=== PATIENT | female | born 1990 | race Caucasian/White ===

== ENCOUNTER → 2019-03-09 12:44 | Outpatient (BNVA) | payer MEDICAID, SELFPAY | PROVIDERS: Visit Provider Nurse Practitioner | DX: F73 Profound intellectual disabilities (principal) | CPT/HCPCS: 99213 ==

== ENCOUNTER 2019-04-22 12:04 | Outpatient (CLI) | payer MEDICAID, SELFPAY ==
--- NOTE | 2019-04-22 12:35 | XR_ITS ---
WS: [id number] XR knee RT 3V* [id number] REASON FOR EXAM: PAIN SWELLING OF R KNEE FINDINGS: Loss of the meniscal space particularly the lateral meniscus with eburnation. There is soft tissue swelling over the lateral knee joint. The patella tibial space is slightly shortened are narr owed. The patellofemoral articulations normal. XR/XR knee RT 3V* [id number] IMPRESSION: Degenerated lateral meniscal disease. Patella vergae Soft tissue swelling particularly over the lateral knee.
--- NOTE | 2019-04-22 12:35 | XR_ITS ---
WS: [id number] XR shoulder LT min 2V* [id number] REASON FOR EXAM: PAIN SWELLING OF L SHOULDER FINDINGS: Hypertrophy of the acromioclavicular joint with elevation of the joint present. There is al so evidence of elevation of the humerus in the glenoid fossa consistent with grade 3 impingement jerez ges. The clavicle scapula show no fractures. 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 Elevation of the acromioclavicular joint with degenerated changes.
--- NOTE | 2019-04-22 12:35 | XR_ITS ---
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 XR/XR hip RT 1V wo/w pel [id number] IMPRESSION: Superior dislocation of the right hip.
== END 2019-04-22 12:05 | disposition home or self-care (01) ==
LOC: RAD 12:10
PROVIDERS: PCP Registered Nurse; Visit Provider Registered Nurse
DX: M25.561 Pain in right knee (principal); M19.012 Primary osteoarthritis, left shoulder; M17.11 Unilateral primary osteoarthritis, right knee; S83.281A Other tear of lateral meniscus, current injury, right knee, initial encounter; X58.XXXA Exposure to other specified factors, initial encounter; S73.004A Unspecified dislocation of right hip, initial encounter
CPT/HCPCS: 73030; 73501; 73562

== ENCOUNTER → 2019-09-07 07:37 | Outpatient (BNVA) | payer MEDICAID, SELFPAY | PROVIDERS: PCP Registered Nurse; Visit Provider Nurse Practitioner | DX: F73 Profound intellectual disabilities (principal) | CPT/HCPCS: 99214 ==

== ENCOUNTER → 2019-12-02 07:53 | Outpatient (BNVA) | payer MEDICAID, SELFPAY | PROVIDERS: PCP Registered Nurse; Visit Provider Nurse Practitioner | DX: F73 Profound intellectual disabilities (principal) | CPT/HCPCS: 99213 ==

== ENCOUNTER → 2020-04-27 07:34 | Outpatient (BNVA) | payer MEDICAID, SELFPAY | PROVIDERS: PCP Registered Nurse; Visit Provider Nurse Practitioner | DX: F73 Profound intellectual disabilities (principal); G47.00 Insomnia, unspecified | CPT/HCPCS: 99214 ==

== ENCOUNTER → 2020-10-19 09:15 | Outpatient (BNVA) | payer MEDICAID, SELFPAY | PROVIDERS: PCP Registered Nurse; Visit Provider Nurse Practitioner | DX: F73 Profound intellectual disabilities (principal); G47.00 Insomnia, unspecified | CPT/HCPCS: 99214 ==

== ENCOUNTER → 2021-04-12 07:26 | Outpatient (BNVA) | payer MEDICAID, SELFPAY | PROVIDERS: PCP Registered Nurse; Visit Provider Nurse Practitioner | DX: F73 Profound intellectual disabilities (principal); G47.00 Insomnia, unspecified | CPT/HCPCS: 99214 ==

== ENCOUNTER 2021-04-19 11:55 | Inpatient (IN) | payer MEDICARE, MEDICAID, SELFPAY ==
[2021-04-19 12:03] VITALS: PULSE 133; RESP 16; O2SAT 93; BMI 25.9
[2021-04-19 12:46] VITALS: PULSE 133; RESP 18; O2SAT 96
[2021-04-19 13:04] LABS: Basophils % 0.3 %; Eosinophils % 0.1 %; Hematocrit 39.8 % (37.0-47.0); Hemoglobin 11.2 g/dL (11.5-15.3); Lymphocytes # 0.9 10^3/uL (0.8-4.8); Lymphocytes % 7.6 %; Mean Corpuscular HGB Conc 28.1 g/dL (30.0-36.0); Mean Corpuscular Hemoglobin 27.3 pg (28.0-34.0); Mean Corpuscular Volume 97.1 fl (81-99); Mean Platelet Volume 11.2 fL (7.4-10.4); Monocytes % 8.2 %; Neutrophils # 10.06 10^3/uL (1.8-7.7); Neutrophils % 83.2 %; Nucleated Red Blood Cells % 0 %; Platelet Count 282 10^3/cmm (130-400); Red Cell Distribution Width 14.4 % (12.1-15.1); White Blood Count 12.1 10^3/uL (4.0-10.0)
--- NOTE | 2021-04-19 13:10 | ED_ITS ---
Documented by User: ARNULFO Driscoll 04/19/21 17:20 HPI - General Adult General: Chief complaint: Nausea/Vomiting/Diarrhea Stated complaint: Urgent Care sent for in need of Fluids Time Seen by Provider: 04/19/21 12:57 History of Present Illness: Patient is a 30-year-old female who comes to the ED with nausea, vomiting and fever. 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 She is unable to talk or ambulate. Patient uses wheelchair to get around. Patient's guardians are present and providing history. Patient was first seen at urgent care and then sent over here to the ED for further evaluation. She had a temperature of 100.4 while at urgent care. They said approximately 2 weeks ago she started developing on and off fevers. Approxima tely 1 week ago patient started having decreased oral intake. Patient has a soft liquid diet at baseline. She has not been taking any real food or fluids and and all over the past couple days. She had one episode of emesis yesterday. They report decreased bladder and bowel output since she is having decreased oral intake. Guardians report that she has been sleeping most of the day for the past couple days Associated symptoms: Reports nausea and vomiting; Deny chest pain, dyspnea, rash or palpitations Review of Systems Const: Reports: change in appetite (decreased), fatigue and change in sleep pattern (Sleeping most of the day.); Denies: fever(s) or chills Eyes: Denies: change in vision or eye discomfort ENMT: Denies: throat pain, odynophagia, nasal discharge or nasal congestion Card: Denies: chest pain, palpitations, edema, swelling of feet/ankles, dyspnea on exertion or orthopnea Resp: Denies: dyspnea, productive cough or non-productive cough GI: Reports: nausea, vomiting and change in bowel habits (Decreased output); Denies: abdominal pain, diarrhea, constipation or hematochezia : Reports: oliguria; Denies: flank pain, dysuria or hematuria Musc: Denies: neck pain, back pain or extremity swelling Skin/Breast: Denies: rash or new lesions [facility] ED PFSH: Medical History Insomnia Profound intellectual disabilities Social History Smoking and tobacco status: never smoked Physical Exam Const: EXAM LIMITATIONS: altered mental status (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 HENMT: COMMON NORMALS: normocephalic HEAD & SCALP: normocephalic MOUTH: moist mucous membranes abnormal TEETH & GINGIVA: Yes poor dentition THROAT: posterior oropharynx normal and uvula midline Neck/C-Spine: COMMON NORMALS: supple GENERAL: Yes normal visual inspection Resp: COMMON NORMALS: normal respiratory effort, No retractions, No use of accessory muscles and clear to auscultation bilaterally AUSCULTATION: clear to auscultation bilaterally Cardio: COMMON NORMALS: regular rate, regular rhythm, S1 normal heart sound present, S2 normal heart sound present, No gallops present (Cardio), No clicks present (Cardio), No murmurs present (Cardio) and Peripheral pulses 2+ throughout RATE: regular rate RHYTHM: regular rhythm HEART SOUNDS: S1 normal heart sound present and S2 normal heart sound present PERIPHERAL PULSES: Peripheral pulses 2+ throughout GI: COMMON NORMALS: Normal to inspection, nondistended, normoactive bowel sounds present, Soft to palpation, non-tender and no masses PALPATION: Yes Soft to palpation : COMMON NORMALS: Yes no CVA tenderness BLADDER/KIDNEY EXAM: Yes no CVA tenderness Back/Pelvis: COMMON NORMALS: no CVA tenderness Course Vital Signs: Vital signs: Vital Signs Temperature 99.1 F 04/20/21 08:00 Pulse Rate 97 04/20/21 08:00 Respiratory Rate 18 04/20/21 08:00 Blood Pressure 110/58 04/20/21 08:00 Pulse Oximetry 97 04/20/21 08:00 [facility] - General Adult Medical Decision Making Patient is a 30-year-old female comes to the ED for dehydration. Patient has not been eating or drinking much of anything over the past week. clinically, she appears very dehydrated cachetic and pail. Na-156 and Cr 1.3. pt care was transferred over to Dr. saxena due to possible admission of pt needed. Lab Data I reviewed the patient's lab results. : 04/20/21 04:55 04/20/21 04:55 Radiology Impressions Chest X-Ray 04/19/21 13:16 IMPRESSION: Normal chest. No acute pulmonary infiltrates. Laboratory Results WBC 12.1 10^3/uL (4.0-10.0) H 04/19/21 12:55 RBC 4.10 10^6/uL (4.1-5.3) 04/19/21 12:55 Hgb 11.2 g/dL (11.5-15.3) L 04/19/21 12:55 Hct 39.8 % (37.0-47.0) 04/19/21 12:55 MCV 97.1 fl (81-99) 04/19/21 12:55 MCH 27.3 pg (28.0-34.0) L 04/19/21 12:55 MCHC 28.1 g/dL (30.0-36.0) L 04/19/21 12:55 RDW 14.4 % (12.1-15.1) 04/19/21 12:55 Plt Count 282 10^3/cmm (130-400) 04/19/21 12:55 MPV 11.2 fL (7.4-10.4) H 04/19/21 12:55 Neut % (Auto) 83.2 % 04/19/21 12:55 Lymph % (Auto) 7.6 % 04/19/21 12:55 [place] % (Auto) 8.2 % 04/19/21 12:55 Eos % (Auto) 0.1 % 04/19/21 12:55 Baso % (Auto) 0.3 % 04/19/21 12:55 Neut # (Auto) 10.06 10^3/uL (1.8-7.7) H 04/19/21 12:55 Lymph # (Auto) 0.9 10^3/uL (0.8-4.8) 04/19/21 12:55 [place] # (Auto) 1.0 10^3/uL (0.2-0.9) H 04/19/21 12:55 Eos # (Auto) 0.0 10^3/uL (0.0-0.8) 04/19/21 12:55 Baso # (Auto) 0.0 10^3/uL (0.0-0.1) 04/19/21 12:55 Nucleated RBC % (auto) 0 % 02/16/22 12:55 Nucleated RBCs # 0.0 /100WBC 04/19/21 12:55 Sodium 156 mmol/L (136-145) H 04/19/21 12:55 Potassium 4.4 mmol/L (3.5-5.1) 04/19/21 12:55 Chloride 115 mmol/L (98-107) H 04/19/21 12:55 Carbon Dioxide 28 mmol/L (22-29) 04/19/21 12:55 Anion Gap 17.4 (5-19) 04/19/21 12:55 BUN 47 mg/dL (6-20) H 04/19/21 12:55 Creatinine 1.3 mg/dL (0.5-0.9) H 04/19/21 12:55 GFR Calculation 47.5 mL/min (90-130) L 04/19/21 12:55 Glucose 160 mg/dL (65-115) H 04/19/21 12:55 Calculated Osmolality 338 mOsm/kg (285-295) H 04/19/21 12:55 Lactic Acid 2.1 mmol/L (0.5-2.2) 04/19/21 13:41 Lactic Acid (Sepsis) 2.7 mmol/L (0.5-2.2) H 04/19/21 17:12 Calcium 9.6 mg/dL (8.5-10.5) 04/19/21 12:55 Total Bilirubin 0.3 mg/dL (0.15-1.2) 04/19/21 12:55 AST 66 U/L (0-32) H 04/19/21 12:55 ALT 61 U/L (0-33) H 04/19/21 12:55 Alkaline Phosphatase 146 IU/L (35-105) H 04/19/21 12:55 Total Protein 8.9 g/dL (6.6-8.7) H 04/19/21 12:55 Albumin 3.7 g/dL (3.5-5.2) 04/19/21 12:55 Globulin 5.2 g/dL (1.3-4.6) H 04/19/21 12:55 Lipase 55 U/L (13-60) 04/19/21 12:55 Procalcitonin 4.80 ng/mL (0-0.5) H 04/19/21 12:55 Coronavirus 229E (PCR) Not detected (NOT DETECT) 04/19/21 17:07 Influenza Type A Ag Cancelled 04/19/21 17:07 Influenza Type B Ag Cancelled 04/19/21 17:07 SARS-CoV-2 (PCR) Not detected (NOT DETECT) 04/19/21 17:07 Discharge Plan Discharge Patient Disposition: Admitted As Inpatient Admit Provider: Romeo Garza Clinical Impression: Sepsis, Severe dehydration, Hypernatremia, SHEKHAR (acute kidney injury), Profound intellectual disabilities Condition: Stable Coding Level of Care Code ED Evaluator Transfer Students for Chg Fwd Exam Detailed Documented by User: Jovani Saxena DO 04/20/21 11:27 HPI - General Adult General: Chief complaint: Nausea/Vomiting/Diarrhea Stated complaint: Urgent Care sent for in need of Fluids Time Seen by Provider: 04/19/21 12:57 History of Present Illness: Patient is a 30-year-old female who comes to the ED with nausea, vomiting and fever. 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 She is unable to talk or ambulate. Patient uses wheelchair to get around. Patient's guardians are present and providing history. Patient was first seen at urgent care and then sent over here to the ED for further evaluation. She had a temperature of 100.4 while at urgent care. They said approximately 2 weeks ago she started developing on and off fevers. Approximately 1 week ago patient started having decreased oral intake. Patient has a soft liquid diet at baseline. She has not been taking any real food or fluids and and all over the past couple days. She had one episode of emesis yesterday. They report decreased bladder and bowel output since she is having decreased oral intake. Guardians report that she has been sleeping most of the day for the past couple days 30-year-old female initially seen by ARNULFO. Has not been eating or drinking well has had a fever at home and has been tachycardic. 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 She usually eats and drinks well in room but has not been taking any consistent oral intake. Mother has not noticed anything that seems to make it better or worse she has had a little bit of a cough. Onset (ago): day(s) Review of Systems General: Reports: ROS unobtainable due to medical condition, ROS unobtainable due to mental status and Other (Review of systems obtained by PA reviewed with pts mother) PFSH ED PFSH: Medical History Insomnia Profound intellectual disabilities Social History Smoking and tobacco status: never smoked Physical Exam HENMT: COMMON NORMALS: normocephalic, atraumatic and hearing grossly normal bilaterally HEAD & SCALP: normocephalic and atraumatic OTHER: Oral mucosa dry and crusted Eye: COMMON NORMALS: Equal, round and reactive pupils present, EOMs intact bilaterally, conjunctivae normal and no scleral icterus CONJUNCTIVA: Yes conjunctivae normal PUPIL: Yes Equal, round and reactive pupils present Neck/C-Spine: COMMON NORMALS: no JVD Resp: COMMON NORMALS: normal respiratory effort, No retractions, No use of accessory muscles and clear to auscultation bilaterally AUSCULTATION: clear to auscultation bilaterally Cardio: COMMON NORMALS: no JVD, regular rate, regular rhythm and No murmurs present (Cardio) RATE: regular rate RHYTHM: regular rhythm GI: COMMON NORMALS: Soft to palpation and No hepatosplenomegaly present AUSCULTATION: Yes normoactive bowel sounds PALPATION: Yes Soft to palpation, No Tenderness to palpation present (GI), No Guarding due to palpation present (GI) and Yes No hepatosplenomegaly present Extremity: COMMON NORMALS: normal to inspection, capillary refill normal, no clubbing, cyanosis or edema, no calf tenderness and no pedal edema Course Vital Signs: Vital signs: Vital Signs Temperature 99.1 F 04/20/21 08:00 Pulse Rate 97 04/20/21 08:00 Respiratory Rate 18 04/20/21 08:00 Blood Pressure 110/58 04/20/21 08:00 Pulse Oximetry 97 04/20/21 08:00 MDM - General Adult Medical Decision Making Patient is a 30-year-old female comes to the ED for dehydration. Patient has not been eating or drinking much of anything over the past week. clinically, she appears very dehydrated cachetic and pail. Na-156 and Cr 1.3. pt care was transferred over to Dr. saxena due to possible admission of pt needed. Patient hyponatremic and dehydrated with elevated procalcitonin we are waiting on a urine discussed with hospitalist empiric antibiotics started. Medical Records I reviewed the patient's medical records. Lab Data : 04/20/21 04:55 04/20/21 04:55 Radiology Impressions Chest X-Ray 04/19/21 13:16 IMPRESSION: Normal chest. No acute pulmonary infiltrates. Laboratory Results WBC 12.1 10^3/uL (4.0-10.0) H 04/19/21 12:55 RBC 4.10 10^6/uL (4.1-5.3) 04/19/21 12:55 Hgb 11.2 g/dL (11.5-15.3) L 04/19/21 12:55 Hct 39.8 % (37.0-47.0) 04/19/21 12:55 MCV 97.1 fl (81-99) 04/19/21 12:55 MCH 27.3 pg (28.0-34.0) L 04/19/21 12:55 MCHC 28.1 g/dL (30.0-36.0) L 04/19/21 12:55 RDW 14.4 % (12.1-15.1) 04/19/21 12:55 Plt Count 282 10^3/cmm (130-400) 04/19/21 12:55 MPV 11.2 fL (7.4-10.4) H 04/19/21 12:55 Neut % (Auto) 83.2 % 04/19/21 12:55 Lymph % (Auto) 7.6 % 04/19/21 12:55 [place] % (Auto) 8.2 % 04/19/21 12:55 Eos % (Auto) 0.1 % 04/19/21 12:55 Baso % (Auto) 0.3 % 04/19/21 12:55 Neut # (Auto) 10.06 10^3/uL (1.8-7.7) H 04/19/21 12:55 Lymph # (Auto) 0.9 10^3/uL (0.8-4.8) 04/19/21 12:55 [place] # (Auto) 1.0 10^3/uL (0.2-0.9) H 04/19/21 12:55 Eos # (Auto) 0.0 10^3/uL (0.0-0.8) 04/19/21 12:55 Baso # (Auto) 0.0 10^3/uL (0.0-0.1) 04/19/21 12:55 Nucleated RBC % (auto) 0 % 04/19/21 12:55 Nucleated RBCs # 0.0 /100WBC 04/19/21 12:55 Sodium 156 mmol/L (136-145) H 04/19/21 12:55 Potassium 4.4 mmol/L (3.5-5.1) 04/19/21 12:55 Chloride 115 mmol/L (98-107) H 04/19/21 12:55 Carbon Dioxide 28 mmol/L (22-29) 04/19/21 12:55 Anion Gap 17.4 (5-19) 04/19/21 12:55 BUN 47 mg/dL (6-20) H 04/19/21 12:55 Creatinine 1.3 mg/dL (0.5-0.9) H 04/19/21 12:55 GFR Calculation 47.5 mL/min (90-130) L 04/19/21 12:55 Glucose 160 mg/dL (65-115) H 04/19/21 12:55 Calculated Osmolality 338 mOsm/kg (285-295) H 04/19/21 12:55 Lactic Acid 2.1 mmol/L (0.5-2.2) 04/19/21 13:41 Lactic Acid (Sepsis) 2.7 mmol/L (0.5-2.2) H 04/19/21 17:12 Calcium 9.6 mg/dL (8.5-10.5) 04/19/21 12:55 Total Bilirubin 0.3 mg/dL (0.15-1.2) 04/19/21 12:55 AST 66 U/L (0-32) H 04/19/21 12:55 ALT 61 U/L (0-33) H 04/19/21 12:55 Alkaline Phosphatase 146 IU/L (35-105) H 04/19/21 12:55 Total Protein 8.9 g/dL (6.6-8.7) H 04/19/21 12:55 Albumin 3.7 g/dL (3.5-5.2) 04/19/21 12:55 Globulin 5.2 g/dL (1.3-4.6) H 04/19/21 12:55 Lipase 55 U/L (13-60) 04/19/21 12:55 Procalcitonin 4.80 ng/mL (0-0.5) H 04/19/21 12:55 Coronavirus 229E (PCR) Not detected (NOT DETECT) 04/19/21 17:07 Influenza Type A Ag Cancelled 04/19/21 17:07 Influenza Type B Ag Cancelled 04/19/21 17:07 SARS-CoV-2 (PCR) Not detected (NOT DETECT) 04/19/21 17:07 Discharge Plan Discharge Patient Disposition: Admitted As Inpatient Admit Provider: Romeo Garza Clinical Impression: Sepsis, Severe dehydration, Hypernatremia, SHEKHAR (acute kidney injury), Profound intellectual disabilities Condition: Stable Coding Level of Care Code ED Evaluator Transfer Students for [employer] Fwd Exam Detailed
--- NOTE | 2021-04-19 13:16 | XR_ITS ---
WS: [id number] CHEST XRAY TECHNIQUE: Portable chest. CLINICAL INFORMATION: fever COMPARISON: None. FINDINGS: Heart: Normal cardiac silhouette. Lungs: Lungs are clear. No consolidation or pleural effusion. No acute pulmonary infiltrates. Bones: Normal visualized bony structures. XR/XR chest 1V portable [id number] IMPRESSION: Normal chest. No acute pulmonary infiltrates.
[2021-04-19 13:24] LABS: Alanine Aminotransferase 61 U/L (0-33); Albumin Level 3.7 g/dL (3.5-5.2); Alkaline Phosphatase 146 IU/L (35-105); Anion Gap 17.4 (5-19); Aspartate Amino Transferase 66 U/L (0-32); Blood Urea Nitrogen 47 mg/dL (6-20); Calcium 9.6 mg/dL (8.5-10.5); Carbon Dioxide 28 mmol/L (22-29); Chloride 115 mmol/L (98-107); Globulin 5.2 g/dL (1.3-4.6); Glomerular Filtration Rate 47.5 mL/min (90-130); Glucose 160 mg/dL (65-115); Lipase 55 U/L (13-60); Osmolality Calculated 338 mOsm/kg (285-295); Potassium 4.4 mmol/L (3.5-5.1); Sodium 156 mmol/L (136-145); Total Bilirubin 0.3 mg/dL (0.15-1.2); Total Protein 8.9 g/dL (6.6-8.7)
[2021-04-19] MEDS: sodium chloride 0.9% 1,000 ML 999 ML IV (13:30)
[2021-04-19 14:01] LABS: Lactic Sepsis W/Reflex 2.1 mmol/L (0.5-2.2)
[2021-04-19 15:30] LABS: Reflex Lactate Order REFLEX LACTIC ORDERD
[2021-04-19] MEDS: lactated ringers 1,000 ML 999 ML IV (17:17)
[2021-04-19] MEDS: piperacillin-tazobactam 3.375 GM in sodium chloride 0.9% (plus) 50 ML IV (17:17)
[2021-04-19 17:54] LABS: Lactic Acid level (Lactate) 2.7 mmol/L (0.5-2.2)
--- NOTE | 2021-04-19 18:07 | PM.HP ---
Providers/Chief Complaint Primary Care Provider: GENARO Paz Chief Complaint: Urgent Care sent for in need of Fluids History of Present Illness Sandi Ramsay is a 30 year old female with past medical history of Ring? chromosome 18 disorder , severe intellectual disability , nonverbal at baseline, do not ambulate. History was provided by mother who is the primary caregiver. According to her she was having fever last week, noted T-max was 102.0, along with fevers she also was Lethargic and was having poor oral intake, she improved slightly for a short period of time last week Today she started having nausea , vomiting and was having poor oral intake again for the last few days She was brought to the urgent care, and was then sent over to the ER for further evaluation. Upon arrival in the ER she was worked up for above-mentioned complaint: Pertinent imaging studies: X-ray chest: No infiltrates Pertinent labs: WBC 12.1 , H&H 11.2 / 39.8 , PLT: 282, serum sodium 156 serum potassium 4.4, BUN and serum creatinine 47 / 1.3 , AST 66 ALT 61 ALP 146, Procalcitonin : 4.80 Influenza and Covid pending Patient received 1 dose of Vanco and Zosyn in the ER, along with IV fluids Review of Systems General: Reports: ROS unobtainable due to medical condition Medications/Allergies Home Medications Medication Instructions Recorded Confirmed Last Taken Type meloxicam 7.5 mg tablet 7.5 mg PO DAILY 07/07/19 04/19/21 04/17/21 History glycopyrrolate 1 mg tablet 1 mg PO BID #60 tab 04/12/21 04/19/21 04/17/21 Rx risperidone 1 mg tablet (Risperdal) 1 mg PO BID #60 tab 04/12/21 04/19/21 04/17/21 Rx levothyroxine 50 mcg tablet 50 mcg PO DAILY 04/19/21 04/19/21 04/17/21 History (Euthyrox) trazodone 150 mg tablet 300 mg PO BEDTIME 04/19/21 04/19/21 04/17/21 History Allergies Allergy/AdvReac Type Severity Reaction Status Date / Time No Known Allergies Allergy Unverified 04/19/21 11:09 PFSH Acute PFSH: Medical History Insomnia Profound intellectual disabilities Social History Smoking and tobacco status: never smoked Vitals/I&O/Wt Last Vital Signs Pulse 133 H 04/19/21 12:46 Resp 18 04/19/21 12:46 Pulse Ox 96 04/19/21 12:46 Weight last 48 hrs Weight 38.555 kg Physical Exam Narrative: Awake and alert HENMT: COMMON NORMALS: normocephalic and atraumatic HEAD & SCALP: normocephalic and atraumatic OTHER: Extremely poor dentition Eye: COMMON NORMALS: no scleral icterus GENERAL EYE: appearance normal, both eyes and all related structures Chest: COMMONS NORMALS: normal inspection of the chest and normal palpation of entire chest wall CHEST: Yes Symmetrical chest wall rise Resp: COMMON NORMALS: normal respiratory effort, No retractions, No use of accessory muscles and clear to auscultation bilaterally EFFORT & INSPECTION: Yes symmetric chest movement AUSCULTATION: clear to auscultation bilaterally Cardio: COMMON NORMALS: regular rate, regular rhythm, S1 normal heart sound present, S2 normal heart sound present, No gallops present (Cardio), No murmurs present (Cardio), No rub (Cardio) and Peripheral pulses 2+ throughout RATE: regular rate RHYTHM: regular rhythm HEART SOUNDS: S1 normal heart sound present and S2 normal heart sound present PERIPHERAL PULSES: Peripheral pulses 2+ throughout GI: COMMON NORMALS: Normal to inspection, nondistended, normoactive bowel sounds present, Soft to palpation, non-tender, No hepatosplenomegaly present and no masses AUSCULTATION: Yes normoactive bowel sounds PALPATION: Yes Soft to palpation and Yes No hepatosplenomegaly present RECTAL EXAM: deferred Extremity: COMMON NORMALS: no clubbing, cyanosis or edema and no pedal edema Data : 04/19/21 12:55 04/19/21 12:55 Micro: Microbiology 04/19/21 17:00 Blood Culture - Preliminary Blood SPECIMEN COLLECTED 04/19/21 17:12 Blood Culture - Preliminary Blood SPECIMEN COLLECTED A&P Assessment and plan (1) SHEKHAR (acute kidney injury): Status: Acute (2) Hypernatremia: Status: Acute (3) Sepsis: Status: Acute (4) Severe dehydration: Status: Acute Plan Assessment: #Sepsis currently source is unclear: Cannot conclusively rule out aspiration pneumonia Patient presented with fever, is tachycardic, elevated WBC, elevated lactic acid, elevated procalcitonin. Follow blood culture, urine culture 2D echo Monitor procalcitonin Repeat x-ray chest after adequate IV hydration Continue Vanco and Zosyn for now #SHEKHAR: Likely secondary to severe dehydration and sepsis Follow urine electrolytes Monitor intake output Monitor BMP Avoid nephrotoxic's #Hypernatremia : Secondary to poor oral intake; Continue IV hydration with D5 half NS at 125 cc an hour Monitor BMP #Severe dehydration: Plan as above #PEM #CODE STATUS: Full code #DVT prophylaxis on Lovenox Attestations Medical Necessity Statement*: Patient needs to be in hospital for management of sepsis. Anticipated length of stay greater than 2 midnights. Time Spent in Patient Care: Greater than 35 minutes (>than 50% of time spent in counselling and/or direct pt care on unit). Coding Level of Care Code Acute Feeder Worker Power Unit Operator for [facility] Fwd Exam Comprehensive Diagnoses SHEKHAR (acute kidney injury) N17.9 Hypernatremia E87.0 Sepsis A41.9 Severe dehydration E86.0
[2021-04-19 19:35] LABS: Adenovirus Not Detected (NOT DETECT); Chlamydia Pneumoniae Not Detected (NOT DETECT); Coronavirus 229E,HKU1,NL63,OC4 Not Detected (NOT DETECT); Human Metapneumovirus Not Detected (NOT DETECT); Human Rhinovirus/Enterovirus Not Detected (NOT DETECT); Influenza A Not Detected (NOT DETECT); Influenza A H1 Not Detected (NOT DETECT); Influenza A H1-2009 Not Detected (NOT DETECT); Influenza A H3 Not Detected (NOT DETECT); Influenza B Not Detected (NOT DETECT); Mycoplasma Pneumoniae Not Detected (NOT DETECT); Parainfluenza Virus Type 1 Not Detected (NOT DETECT); Parainfluenza Virus Type 2 Not Detected (NOT DETECT); Parainfluenza Virus Type 3 Not Detected (NOT DETECT); Parainfluenza Virus Type 4 Not Detected (NOT DETECT); Respiratory Syncytial Virus A Not Detected (NOT DETECT); Respiratory Syncytial Virus B Not Detected (NOT DETECT); SARS-COV-2 Not Detected (NOT DETECT)
[2021-04-19 19:36] LABS: Influenza A Not Detected (NOT DETECT); Influenza A H1 Not Detected (NOT DETECT); Influenza A H1-2009 Not Detected (NOT DETECT); Influenza A H3 Not Detected (NOT DETECT); Influenza B Not Detected (NOT DETECT); Results from GENMARK
[2021-04-19 20:00] VITALS: BP 116/70; PULSE 125; RESP 20; TEMP 38.5; O2SAT 94
[2021-04-19] MEDS: piperacillin-tazobactam 3.375 GM in sodium chloride 0.9% (plus) 100 ML IV (20:25)
[2021-04-19] MEDS: trazodone 150 mg Tablet 300 MG PO (20:25)
[2021-04-19] MEDS: dextrose 5%-sod chloride 0.45% 1,000 ML 125 ML IV (20:25)
[2021-04-19] MEDS: enoxaparin 30 mg/0.3 mL Syringe SUBCUT (20:25)
[2021-04-19 21:44] VITALS: BMI 16.5
[2021-04-19] MEDS: acetaminophen 325 mg Tablet 650 MG PO (22:09)
[2021-04-19] MEDS: sodium chloride 0.9% 1,000 ML 100 ML IV (22:09)
[2021-04-20] VITALS: BP 98/64; PULSE 88; RESP 22; TEMP 37.2; O2SAT 95
--- NOTE | 2021-04-20 01:53 | PC.NURSE ---
0150 US tech here to perform echo as ordered. Procedure explained to mother at bedside.
[2021-04-20] MEDS: piperacillin-tazobactam 3.375 GM in sodium chloride 0.9% (plus) 100 ML IV ×3 (02:20→17:28)
[2021-04-20 04:00] VITALS: BP 101/67; PULSE 70; RESP 19; TEMP 36.5; O2SAT 97
[2021-04-20 05:15] LABS: Basophils % 0.4 %; Hematocrit 31.2 % (37.0-47.0); Hemoglobin 8.7 g/dL (11.5-15.3); Lymphocytes # 1.5 10^3/uL (0.8-4.8); Lymphocytes % 14.9 %; Mean Corpuscular HGB Conc 27.9 g/dL (30.0-36.0); Mean Corpuscular Hemoglobin 27.4 pg (28.0-34.0); Mean Corpuscular Volume 98.1 fl (81-99); Mean Platelet Volume 11.2 fL (7.4-10.4); Monocytes # 0.8 10^3/uL (0.2-0.9); Monocytes % 7.9 %; Nucleated Red Blood Cells % 0 %; Platelet Count 213 10^3/cmm (130-400); Red Blood Count 3.18 10^6/uL (4.1-5.3); Red Cell Distribution Width 14.4 % (12.1-15.1); White Blood Count 9.9 10^3/uL (4.0-10.0)
[2021-04-20 05:52] LABS: Procalcitonin 3.08 ng/mL (0-0.5); Thyroid Stimulating Hormone 1.12 uIU/mL (0.27-4.20)
--- NOTE | 2021-04-20 06:00 | USCV_ITS ---
Sandi Ramsay Age: 30 Gender: F : 1990 Exam Date: 04/20/2021 02:00 Ordering Phys: Romeo Garza MD Technologist: [email or web address] [place] [facility] [place]: Sepsis/Poor Dentition BP: / HR: Rhythm: Sinus Technical Quality: Adequate MEASUREMENTS (Male / Female) Normal Values 2D ECHO LVOT Diameter 1.3 cm LA Diameter 1.9 cm Aorta at Sinotubular Diameter 1.8 cm M-MODE Aortic Annulus Diameter 1.5 cm LA Ao Ratio MM 1.3 MV E Point Septal Separation 0.5 cm FINDINGS Left Ventricle Right Ventricle Right Atrium Left Atrium Mitral Valve Aortic Valve Tricuspid Valve Pulmonic Valve Pericardium Aorta CONCLUSIONS Limited echocardiogram images Grossly LV systolic function appears normal No visible vegetation on mitral or aortic valves in the limited views that were obtained No comparison studies available Darinel Loyola MD (Electronically Signed) Final Date: 20 April 2021 17:24 S
[2021-04-20 06:04] LABS: Alanine Aminotransferase 43 U/L (0-33); Albumin Level 2.6 g/dL (3.5-5.2); Alkaline Phosphatase 106 IU/L (35-105); Anion Gap 13.6 (5-19); Aspartate Amino Transferase 43 U/L (0-32); Blood Urea Nitrogen 33 mg/dL (6-20); Calcium 8.2 mg/dL (8.5-10.5); Carbon Dioxide 22 mmol/L (22-29); Chloride 122 mmol/L (98-107); Globulin 3.9 g/dL (1.3-4.6); Glomerular Filtration Rate 72.6 mL/min (90-130); Glucose 131 mg/dL (65-115); Osmolality Calculated 327 mOsm/kg (285-295); Potassium 3.6 mmol/L (3.5-5.1); Sodium 154 mmol/L (136-145); Total Bilirubin 0.5 mg/dL (0.15-1.2); Total Protein 6.5 g/dL (6.6-8.7)
[2021-04-20 08:00] VITALS: BP 110/58; PULSE 97; RESP 18; TEMP 37.3; O2SAT 97
[2021-04-20] MEDS: dextrose 5%-sod chloride 0.45% 1,000 ML 125 ML IV ×2 (08:05→15:46)
[2021-04-20] MEDS: levothyroxine 50 mcg Tablet PO (08:07)
[2021-04-20] MEDS: risperiDONE 1 mg Tablet PO ×2 (08:07→17:30)
--- NOTE | 2021-04-20 10:28 | PC.CHAP ---
Pastoral Care Encounter/Spiritual Assessment Type of Contact [] Declined manager merchandise visit [] Patient/Family/Request visit [] Outpatient visit [] Follow-up visit [] Physician referral [] Code/Alert [x] Routine visit [] Staff referral [] Actively dying [] Patient sleeping [] Family support [] [] Out of room [] Palliative care [] [x] Receiving care in room [] Pre-surgical visit [] Trauma [] Long length of stay [] ICU visit [] Other: Relational/Emotional Strength [x] Patient feels connected with others/family/visitors/staff [] Distress [] Loneliness/isolation [] Abandonment Spirituality of Patient [x] Person of Kim [] Attends Hinduism of their Kim [x] Believes in Prayer [] Reads Bible or Scientologist materials [] There are Spiritual issues to be addressed Technical Professional Interventions [] Prayer [] Active listening [x] Non-anxious presence [] Spiritual/emotional support [] Crisis/trauma care [] Spiritual counseling [] Bereavement support [] Provided bereavement packet [] Provided Bible/devotional materials [] Provided toy/stuffed animal, coloring book to patient or family member [] Provided Communion [] Anointing/[facility] [] Salvation [] Completed spiritual assessment [] Other: Impact on Illness or Injury [] Angry [] Fearful [x] Anxious [] Often cries [] Exhaustion [] Unable to work [] Unable to attend tenriism [] Unable to walk/stand [] Unable to read [] Unable to drive [] Unable to eat/drink [] Unable to sleep [] Unable to be with family [] Patient intubated [] Other: Summary dyhidrated floods feeling better wiill be going home has a good attitude Time spent with patient 10 mins
--- NOTE | 2021-04-20 15:41 | PM.PN ---
Subjective Subjective: Patient was seen and examined this morning, overnight, noted T-max is:101.3, serum sodium is improving, Serum creatinine is improving, CRP is trending down. Her other vitals and labs have been reviewed. Medications: Medication Review Details: Generic Name Dose Route Start Last Admin Trade Name Tomás PRN Reason Stop Dose Admin Acetaminophen 650 mg 04/19/21 18:00 04/19/21 22:09 Acetaminophen 32 5 Mg Tablet PO 650 mg Q6H PRN Administration Mild/Mod Pain Or Temp >/= 101 Enoxaparin Sodium 30 mg 04/19/21 18:00 04/19/21 20:25 Enoxaparin 30 Mg /0.3 Ml Syringe SUBCUT 30 mg Q24H ANAM Administration Piperacillin Sod/T azobactam 100 mls @ 25 mls/ hr 04/19/21 18:15 04/20/21 16:04 Sod 3.375 gm/ So dium Chloride IV Infused Q8H ANAM Infusion Protocol Vancomycin HCl 500 mg/ Sodium 100 mls @ 200 mls /hr 04/19/21 20:00 04/19/21 20:26 Chloride IV Not Given Q24H ANAM Levothyroxine Sodi um 50 mcg 04/20/21 09:00 04/20/21 08:07 Levothyroxine 50 Mcg Tablet PO 50 mcg DAILY ANAM Administration Non-Formulary Medi cation 1 mg 04/20/21 09:00 04/20/21 08:10 Glycopyrrolate PO Not Given BID ANAM Risperidone 1 mg 04/20/21 09:00 04/20/21 08:07 Risperidone 1 Mg Tablet PO 1 mg BID ANAM Administration Trazodone HCl 300 mg 04/19/21 21:00 04/19/21 20:25 Trazodone 150 Mg Tablet PO 300 mg BEDTIME ANAM Administration Vitals/I&O/Wt Last Vital Signs Temp 99.1 F 04/20/21 08:00 Pulse 97 04/20/21 08:00 Resp 18 04/20/21 08:00 BP 110/58 04/20/21 08:00 Pulse Ox 97 04/20/21 08:00 04/20/21 04/20/21 04/20/21 06:59 14:59 22:59 Intake Total 825 / 3150.000 1100 / 1100 Balance 825 / 3150.000 1100 / 1100 Weight last 48 hrs Weight 28.746 kg Weight 38.555 kg Physical Exam Narrative: Awake and alert HENMT: COMMON NORMALS: normocephalic and atraumatic HEAD & SCALP: normocephalic and atraumatic OTHER: Extremely poor dentition Eye: COMMON NORMALS: no scleral icterus GENERAL EYE: appearance normal, both eyes and all related structures Chest: COMMONS NORMALS: normal inspection of the chest and normal palpation of entire chest wall CHEST: Yes Symmetrical chest wall rise Resp: COMMON NORMALS: normal respiratory effort, No retractions, No use of accessory muscles and clear to auscultation bilaterally EFFORT & INSPECTION: Yes symmetric chest movement AUSCULTATION: clear to auscultation bilaterally Cardio: COMMON NORMALS: regular rate, regular rhythm, S1 normal heart sound present, S2 normal heart sound present, No gallops present (Cardio), No murmurs present (Cardio), No rub (Cardio) and Peripheral pulses 2+ throughout RATE: regular rate RHYTHM: regular rhythm HEART SOUNDS: S1 normal heart sound present and S2 normal heart sound present PERIPHERAL PULSES: Peripheral pulses 2+ throughout GI: COMMON NORMALS: Normal to inspection, nondistended, normoactive bowel sounds present, Soft to palpation, non-tender, No hepatosplenomegaly present and no masses AUSCULTATION: Yes normoactive bowel sounds PALPATION: Yes Soft to palpation and Yes No hepatosplenomegaly present RECTAL EXAM: deferred Extremity: COMMON NORMALS: no clubbing, cyanosis or edema and no pedal edema Data : 04/20/21 04:55 04/20/21 04:55 Micro: Microbiology 04/19/21 17:00 Blood Culture - Preliminary Blood SPECIMEN COLLECTED 04/19/21 17:12 Blood Culture - Preliminary Blood SPECIMEN COLLECTED A&P Assessment and plan (1) SHEKHAR (acute kidney injury): Status: Acute (2) Hypernatremia: Status: Acute (3) Sepsis: Status: Acute (4) Severe dehydration: Status: Acute Plan Assessment: #Sepsis currently source is unclear: Cannot conclusively rule out aspiration pneumonia Patient presented with fever, is tachycardic, elevated WBC, elevated lactic acid, elevated procalcitonin. Blood culture, urine culture Covid PCR is negative 2D echo Monitor procalcitonin Repeat x-ray chest after adequate IV hydration Continue Vanco and Zosyn for now #SHEKHAR: Likely secondary to severe dehydration and sepsis Follow urine electrolytes Monitor intake output Monitor BMP Avoid nephrotoxic's #Hypernatremia : Secondary to poor oral intake; Continue IV hydration with D5 half NS at 125 cc an hour Monitor BMP #Severe dehydration: Plan as above #PEM #CODE STATUS: Full code #DVT prophylaxis on Lovenox Attestations Medical Necessity Statement*: Patient needs to be in hospital for management of sepsis. Coding Level of Care Code Acute Termite Control Servicer for g Fwd Exam Detailed Diagnoses SHEKHAR (acute kidney injury) N17.9 Hypernatremia E87.0 Sepsis A41.9 Severe dehydration E86.0
[2021-04-20 15:49] VITALS: BP 104/75; PULSE 102; RESP 14; TEMP 37.2; O2SAT 96
[2021-04-20] MEDS: dextrose 5% 1,000 ML 75 ML IV (17:28)
[2021-04-20] MEDS: enoxaparin 30 mg/0.3 mL Syringe SUBCUT (17:30)
[2021-04-20] MEDS: vancomycin 500 MG in sodium chloride 0.9% (plus) 100 ML 200 MG IV (19:57)
[2021-04-20 20:00] VITALS: BP 102/68; PULSE 96; RESP 18; TEMP 39.3; O2SAT 99
[2021-04-20] MEDS: acetaminophen 325 mg Tablet 650 MG PO (20:00)
[2021-04-20] MEDS: trazodone 150 mg Tablet 300 MG PO (20:02)
[2021-04-20 22:00] VITALS: TEMP 37.1
[2021-04-21] VITALS (7 sets, daily range): BP systolic 92–115; BP diastolic 50–75; PULSE 71–110; RESP 14–16; TEMP 36.6–38.4; O2SAT 97–98
--- NOTE | 2021-04-21 01:22 | PC.NURSE ---
2000 Pt incontinent of urine. Pericare given ad brief changed. Mom at bedside gives Tylenol po as ordered for fever. Given in applesauce. Tolerates well.
--- NOTE | 2021-04-21 01:24 | PC.NURSE ---
2200 pt brief is dry. Temp recheck 98.7. No distress. Mom at bedside.
--- NOTE | 2021-04-21 01:24 | PC.NURSE ---
0010 Resting in bed on right side. Brief changed incontinent of urine.
[2021-04-21] MEDS: piperacillin-tazobactam 3.375 GM in sodium chloride 0.9% (plus) 100 ML IV ×3 (02:02→17:18)
--- NOTE | 2021-04-21 04:51 | PC.NURSE ---
0430 Xray at bedside.
--- NOTE | 2021-04-21 04:51 | PC.NURSE ---
0445 Pt incontinent of urine. Brief changed. Tolerates well. Mother at bedside. Turned to right side.
[2021-04-21 05:29] LABS: Basophils % 0.3 %; Eosinophils % 0.3 %; Hematocrit 30.3 % (37.0-47.0); Hemoglobin 8.8 g/dL (11.5-15.3); Lymphocytes # 1.8 10^3/uL (0.8-4.8); Lymphocytes % 22.4 %; Mean Corpuscular Hemoglobin 27.5 pg (28.0-34.0); Mean Corpuscular Volume 94.7 fl (81-99); Mean Platelet Volume 10.8 fL (7.4-10.4); Monocytes # 0.6 10^3/uL (0.2-0.9); Monocytes % 7.6 %; Neutrophils # 5.43 10^3/uL (1.8-7.7); Neutrophils % 68.6 %; Nucleated Red Blood Cells % 0 %; Platelet Count 208 10^3/cmm (130-400); Red Cell Distribution Width 14.3 % (12.1-15.1); White Blood Count 7.9 10^3/uL (4.0-10.0)
[2021-04-21] MEDS: dextrose 5% 1,000 ML 75 ML IV (05:48)
[2021-04-21 05:55] LABS: Alanine Aminotransferase 32 U/L (0-33); Albumin Level 2.5 g/dL (3.5-5.2); Alkaline Phosphatase 85 IU/L (35-105); Anion Gap 9.9 (5-19); Aspartate Amino Transferase 24 U/L (0-32); Blood Urea Nitrogen 15 mg/dL (6-20); Calcium 8.1 mg/dL (8.5-10.5); Carbon Dioxide 26 mmol/L (22-29); Chloride 110 mmol/L (98-107); Globulin 3.1 g/dL (1.3-4.6); Glucose 138 mg/dL (65-115); Osmolality Calculated 299 mOsm/kg (285-295); Sodium 143 mmol/L (136-145); Total Bilirubin 0.2 mg/dL (0.15-1.2); Total Protein 5.6 g/dL (6.6-8.7)
--- NOTE | 2021-04-21 06:00 | XR_ITS ---
WS: [id number] PORTABLE CHEST HISTORY: Sepsis COMPARISON: 04/19/2021 Lungs are clear and well expanded. No pleural effusion or pneumothorax. Cardiac size: Normal. Mediastinum/Aorta: Normal mediastinum. No osseous abnormality seen. XR/XR chest 1V portable [id number] IMPRESSION: Unremarkable portable chest.
[2021-04-21 06:07] LABS: Potassium 2.9 mmol/L (3.5-5.1)
[2021-04-21] MEDS: lidocaine 1% 5 ML in potassium chloride premix 100 ML 25 ML IV (07:18)
[2021-04-21] MEDS: risperiDONE 1 mg Tablet PO ×2 (08:48→17:19)
[2021-04-21] MEDS: levothyroxine 50 mcg Tablet PO (08:48)
--- NOTE | 2021-04-21 12:31 | PM.PN ---
Subjective Subjective: Patient was seen and examined this morning, continues to have temperature spike. Noted T-max last night:102.8, hypernatremia has resolved. blood Cultures remain negative so far. Medications: Medication Review Details: Generic Name Dose Route Start Last Admin Trade Name Tomás PRN Reason Stop Dose Admin Acetaminophen 650 mg 04/19/21 18:00 04/19/21 22:09 Acetaminophen 32 5 Mg Tablet PO 650 mg Q6H PRN Administration Mild/Mod Pain Or Temp >/= 101 Enoxaparin Sodium 30 mg 04/19/21 18:00 04/19/21 20:25 Enoxaparin 30 Mg /0.3 Ml Syringe SUBCUT 30 mg Q24H ANAM Administration Piperacillin Sod/T azobactam 100 mls @ 25 mls/ hr 04/19/21 18:15 04/20/21 16:04 Sod 3.375 gm/ So dium Chloride IV Infused Q8H ANAM Infusion Protocol Vancomycin HCl 500 mg/ Sodium 100 mls @ 200 mls /hr 04/19/21 20:00 04/19/21 20:26 Chloride IV Not Given Q24H ANAM Levothyroxine Sodi um 50 mcg 04/20/21 09:00 04/20/21 08:07 Levothyroxine 50 Mcg Tablet PO 50 mcg DAILY ANAM Administration Non-Formulary Medi cation 1 mg 04/20/21 09:00 04/20/21 08:10 Glycopyrrolate PO Not Given BID ANAM Risperidone 1 mg 04/20/21 09:00 04/20/21 08:07 Risperidone 1 Mg Tablet PO 1 mg BID ANAM Administration Trazodone HCl 300 mg 04/19/21 21:00 04/19/21 20:25 Trazodone 150 Mg Tablet PO 300 mg BEDTIME ANAM Administration Vitals/I&O/Wt Last Vital Signs Temp 98.3 F 04/21/21 11:38 Pulse 110 H 04/21/21 11:38 Resp 16 04/21/21 11:38 BP 108/75 04/21/21 11:38 Pulse Ox 98 04/21/21 11:38 04/20/21 04/21/21 04/21/21 22:59 06:59 14:59 Intake Total 1387.500 / 2487.500 1075 / 3562.500 876.25 / 876.25 Balance 1387.500 / 2487.500 1075 / 3562.500 876.25 / 876.25 Weight last 48 hrs Weight 28.746 kg Physical Exam Narrative: Awake and alert HENMT: COMMON NORMALS: normocephalic and atraumatic HEAD & SCALP: normocephalic and atraumatic OTHER: Extremely poor dentition Eye: COMMON NORMALS: no scleral icterus GENERAL EYE: appearance normal, both eyes and all related structures Chest: COMMONS NORMALS: normal inspection of the chest and normal palpation of entire chest wall CHEST: Yes Symmetrical chest wall rise Resp: COMMON NORMALS: normal respiratory effort, No retractions, No use of accessory muscles and clear to auscultation bilaterally EFFORT & INSPECTION: Yes symmetric chest movement AUSCULTATION: clear to auscultation bilaterally Cardio: COMMON NORMALS: regular rate, regular rhythm, S1 normal heart sound present, S2 normal heart sound present, No gallops present (Cardio), No murmurs present (Cardio), No rub (Cardio) and Peripheral pulses 2+ throughout RATE: regular rate RHYTHM: regular rhythm HEART SOUNDS: S1 normal heart sound present and S2 normal heart sound present PERIPHERAL PULSES: Peripheral pulses 2+ throughout GI: COMMON NORMALS: Normal to inspection, nondistended, normoactive bowel sounds present, Soft to palpation, non-tender, No hepatosplenomegaly present and no masses AUSCULTATION: Yes normoactive bowel sounds PALPATION: Yes Soft to palpation and Yes No hepatosplenomegaly present RECTAL EXAM: deferred Extremity: COMMON NORMALS: no clubbing, cyanosis or edema and no pedal edema Data : 04/21/21 05:06 04/21/21 05:06 Micro: Microbiology 04/19/21 17:00 Blood Culture - Preliminary Blood NEGATIVE TO DATE 04/19/21 17:12 Blood Culture - Preliminary Blood NEGATIVE TO DATE A&P Assessment and plan (1) SHEKHAR (acute kidney injury): Status: Acute (2) Hypernatremia: Status: Acute (3) Sepsis: Status: Acute (4) Severe dehydration: Status: Acute Plan Assessment: #Sepsis currently source is unclear: Cannot conclusively rule out aspiration pneumonia Patient presented with fever, is tachycardic, elevated WBC, elevated lactic acid, elevated procalcitonin. Blood culture, urine culture MRSA PCR Covid PCR is negative 2D echo: Poor quality 2D echo, due to patient current condition. Normal LVEF,No visible vegetation on mitral or aortic valves in the limited ?views that were obtained Monitor procalcitonin: Trending down Repeat x-ray chest : No infiltrates Continue Vanco and Zosyn for now #SHEKHAR: Likely secondary to severe dehydration and sepsis:Resolved Follow urine electrolytes Monitor intake output Monitor BMP Avoid nephrotoxic's #Hypernatremia : Secondary to poor oral intake;Resolved Was on IV hydration with D5 half NS at 125 cc an hour as well as D5W. Monitor BMP #Severe dehydration: Plan as above #PEM #CODE STATUS: Full code #DVT prophylaxis on Lovenox Attestations Medical Necessity Statement*: Patient is still in hospital for management of sepsis. Coding Level of Care Code Acute Telemarketer Supervisor for [facility] Fwd Exam Comprehensive Diagnoses SHEKHAR (acute kidney injury) N17.9 Hypernatremia E87.0 Sepsis A41.9 Severe dehydration E86.0
[2021-04-21] MEDS: acetaminophen 325 mg Tablet 650 MG PO (17:18)
[2021-04-21] MEDS: enoxaparin 30 mg/0.3 mL Syringe SUBCUT (17:18)
[2021-04-21 17:46] LABS: Add Urine Microscopic? NO; Charge for UA Resulting for Rev
[2021-04-21 17:55] LABS: Bilirubin Urine Neg (Negative); Blood Urine Neg (Negative); Glucose Urine UA Norm (Normal); Ketones Urine Negative (Negative); Leukocyte Esterase Urine Negative (Negative); Nitrate Urine Negative (Negative); Protein Urine Neg (Negative); Urine Appearance Clear (CLEAR); Urine Color Yellow (Yellow); Urobilinogen Urine Norm (Negative); pH Urine 5 (5-7)
--- NOTE | 2021-04-21 17:55 | PC.NURSE ---
patient straight cathed for UA- tolerated well.
[2021-04-21] MEDS: vancomycin 500 MG in sodium chloride 0.9% (plus) 100 ML 200 MG IV (20:08)
[2021-04-21] MEDS: trazodone 150 mg Tablet 300 MG PO (20:09)
[2021-04-21 20:20] LABS: Vancomycin Trough 5.1 ug/mL (10-15)
[2021-04-22] VITALS (8 sets, daily range): BP systolic 100–126; BP diastolic 69–84; PULSE 72–97; RESP 15–18; TEMP 36.6–37.1; O2SAT 96–99
[2021-04-22] MEDS: piperacillin-tazobactam 3.375 GM in sodium chloride 0.9% (plus) 100 ML IV (02:15)
[2021-04-22 05:09] LABS: Basophils % 0.3 %; Eosinophils % 0.1 %; Hematocrit 28.9 % (37.0-47.0); Hemoglobin 8.6 g/dL (11.5-15.3); Lymphocytes # 1.2 10^3/uL (0.8-4.8); Mean Corpuscular HGB Conc 29.8 g/dL (30.0-36.0); Mean Corpuscular Volume 90.9 fl (81-99); Mean Platelet Volume 10.9 fL (7.4-10.4); Monocytes # 0.5 10^3/uL (0.2-0.9); Neutrophils # 5.97 10^3/uL (1.8-7.7); Neutrophils % 77.6 %; Nucleated Red Blood Cells % 0 %; Platelet Count 210 10^3/cmm (130-400); Red Blood Count 3.18 10^6/uL (4.1-5.3); Red Cell Distribution Width 13.7 % (12.1-15.1); White Blood Count 7.7 10^3/uL (4.0-10.0)
[2021-04-22 05:43] LABS: Alanine Aminotransferase 28 U/L (0-33); Albumin Level 2.8 g/dL (3.5-5.2); Alkaline Phosphatase 112 IU/L (35-105); Anion Gap 11.2 (5-19); Aspartate Amino Transferase 23 U/L (0-32); Blood Urea Nitrogen 11 mg/dL (6-20); Calcium 8.9 mg/dL (8.5-10.5); Carbon Dioxide 24 mmol/L (22-29); Chloride 108 mmol/L (98-107); Globulin 3.9 g/dL (1.3-4.6); Glucose 94 mg/dL (65-115); Osmolality Calculated 289 mOsm/kg (285-295); Potassium 3.2 mmol/L (3.5-5.1); Sodium 140 mmol/L (136-145); Total Bilirubin 0.4 mg/dL (0.15-1.2); Total Protein 6.7 g/dL (6.6-8.7)
--- NOTE | 2021-04-22 08:01 | P.PN_ITS ---
Subjective Subjective: Patient was seen and examined this morning, has remained afebrile overnight.Her mother is the primary caregiver says that she is progressing towards the baseline. Oral intake has also normalized. Medications: Medication Review Details: Generic Name Dose Route Start Last Admin Trade Name Tomás PRN Reason Stop Dose Admin Acetaminophen 650 mg 04/19/21 18:00 04/19/21 22:09 Acetaminophen 32 5 Mg Tablet PO 650 mg Q6H PRN Administration Mild/Mod Pain Or Temp >/= 101 Enoxaparin Sodium 30 mg 04/19/21 18:00 04/19/21 20:25 Enoxaparin 30 Mg /0.3 Ml Syringe SUBCUT 30 mg Q24H ANAM Administration Piperacillin Sod/T azobactam 100 mls @ 25 mls/ hr 04/19/21 18:15 04/20/21 16:04 Sod 3.375 gm/ So dium Chloride IV Infused Q8H ANAM Infusion Protocol Vancomycin HCl 500 mg/ Sodium 100 mls @ 200 mls /hr 04/19/21 20:00 04/19/21 20:26 Chloride IV Not Given Q24H ANAM Levothyroxine Sodi um 50 mcg 04/20/21 09:00 04/20/21 08:07 Levothyroxine 50 Mcg Tablet PO 50 mcg DAILY ANAM Administration Non-Formulary Medi cation 1 mg 04/20/21 09:00 04/20/21 08:10 Glycopyrrolate PO Not Given BID ANAM Risperidone 1 mg 04/20/21 09:00 04/20/21 08:07 Risperidone 1 Mg Tablet PO 1 mg BID ANAM Administration Trazodone HCl 300 mg 04/19/21 21:00 04/19/21 20:25 Trazodone 150 Mg Tablet PO 300 mg BEDTIME ANAM Administration Vitals/I&O/Wt Last Vital Signs Temp 98.7 F 04/22/21 07:37 Pulse 76 04/22/21 07:37 Resp 16 04/22/21 07:37 BP 115/77 04/22/21 07:37 Pulse Ox 98 04/22/21 07:37 04/21/21 04/22/21 04/22/21 22:59 06:59 14:59 Intake Total 660 / 1656.25 220 / 1876.25 Output Total Balance 635 / 1631.25 220 / 1851.25 Physical Exam Narrative: Awake and alert Const: COMMON NORMALS: patient oriented x3 HENMT: COMMON NORMALS: normocephalic and atraumatic HEAD & SCALP: normocephalic and atraumatic Eye: COMMON NORMALS: no scleral icterus GENERAL EYE: appearance normal, both eyes and all related structures Chest: COMMONS NORMALS: normal inspection of the chest and normal palpation of entire chest wall CHEST: Yes Symmetrical chest wall rise Resp: COMMON NORMALS: normal respiratory effort, No retractions, No use of accessory muscles and clear to auscultation bilaterally EFFORT & INSPECTION: Yes symmetric chest movement AUSCULTATION: clear to auscultation bilaterally Cardio: COMMON NORMALS: regular rate, regular rhythm, S1 normal heart sound present, S2 normal heart sound present, No gallops present (Cardio), No murmurs present (Cardio), No rub (Cardio) and Peripheral pulses 2+ throughout RATE: regular rate RHYTHM: regular rhythm HEART SOUNDS: S1 normal heart sound present and S2 normal heart sound present PERIPHERAL PULSES: Peripheral pulses 2+ throughout GI: COMMON NORMALS: Normal to inspection, nondistended, normoactive bowel sounds present, Soft to palpation, non-tender, No hepatosplenomegaly present and no masses AUSCULTATION: Yes normoactive bowel sounds PALPATION: Yes Soft to palpation and Yes No hepatosplenomegaly present RECTAL EXAM: deferred Extremity: COMMON NORMALS: no clubbing, cyanosis or edema and no pedal edema Neuro: COMMON NORMALS: patient oriented x3 Data : 04/22/21 04:35 04/22/21 04:35 A&P Assessment and plan (1) SHEKHAR (acute kidney injury): Status: Acute (2) Hypernatremia: Status: Acute (3) Sepsis: Status: Acute (4) Severe dehydration: Status: Acute Plan Assessment: #Sepsis currently source is unclear: Cannot conclusively rule out aspiration pneumonia Patient presented with fever, is tachycardic, elevated WBC, elevated lactic acid, elevated procalcitonin. Blood culture: NTD urine culture: NTD MRSA PCR : Negative Covid PCR is negative 2D echo: Poor quality 2D echo, due to patient current condition. Normal LVEF, No visible vegetation on mitral or aortic valves in the limited ?views that were obtained Procalcitonin: Trending down Repeat x-ray chest : No infiltrates Continue Vanco and Zosyn for now #SHEKHAR: Likely secondary to severe dehydration and sepsis:Resolved Follow urine electrolytes Monitor intake output Monitor BMP Avoid nephrotoxic's #Hypernatremia : Secondary to poor oral intake;Resolved Was on IV hydration with D5 half NS at 125 cc an hour as well as D5W. Monitor BMP #Severe dehydration: Plan as above #PEM #CODE STATUS: Full code #DVT prophylaxis on Lovenox Attestations Medical Necessity Statement*: Patient is to be in hospital for management of sepsis severe dehydration hypernatremia. If continues to remain afebrile you can be discharged tomorrow. Coding Level of Care Code Acute Pals Specialist for [facility] Fwd Exam Comprehensive Diagnoses SHEKHAR (acute kidney injury) N17.9 Hypernatremia E87.0 Sepsis A41.9 Severe dehydration E86.0
[2021-04-22] MEDS: lidocaine 1% 5 ML in potassium chloride premix 100 ML 50 ML IV (09:24)
[2021-04-22] MEDS: levothyroxine 50 mcg Tablet PO (09:34)
--- NOTE | 2021-04-22 09:35 | PC.SOCIAL ---
Pg 2 IMM Explained to pt's mother, Pg 2 IMM. No questions voiced. Provided pt a copy. Initialed, dated, & timed a copy & placed in chart.
[2021-04-22] MEDS: risperiDONE 1 mg Tablet PO ×3 (11:21→17:49)
[2021-04-22] MEDS: piperacillin-tazobactam 3.375 GM in sodium chloride 0.9% (plus) 50 ML IV ×2 (12:32→18:32)
[2021-04-22] MEDS: enoxaparin 30 mg/0.3 mL Syringe SUBCUT (17:41)
[2021-04-22] MEDS: trazodone 150 mg Tablet 300 MG PO (20:53)
[2021-04-23] MEDS: piperacillin-tazobactam 3.375 GM in sodium chloride 0.9% (plus) 50 ML IV (03:56)
[2021-04-23 04:00] VITALS: BP 114/75; PULSE 88; RESP 16; TEMP 36.9; O2SAT 97
[2021-04-23 08:00] VITALS: BP 106/68; PULSE 88; RESP 18; TEMP 36.9; O2SAT 98
[2021-04-23] MEDS: levothyroxine 50 mcg Tablet PO (09:28)
--- NOTE | 2021-04-23 11:18 | P.DS_ITS ---
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 History was provided by mother who is the primary caregiver. According to her she was having fever last week, noted T-max was 102.0, along with fevers she also was Lethargic and was having poor oral intake, she improved slightly for a short period of time last week Today she started having nausea , vomiting and was having poor oral intake again for the last few days She was brought to the urgent care, and was then sent over to the ER for further evaluation. Upon arrival in the ER she was worked up for above-mentioned complaint: Pertinent imaging studies: X-ray chest: No infiltrates Pertinent labs: WBC 12.1 , H&H 11.2 / 39.8 , PLT: 282, serum sodium 156 serum potassium 4.4, BUN and serum creatinine 47 / 1.3 , AST 66 ALT 61 ALP 146, Procalcitonin :? 4.80 Influenza and Covid PCR :Not detected Patient received 1 dose of Vanco and Zosyn in the ER, along with IV fluids Hospital course: She was admitted for the management of sepsis likely secondary to possiblely 2/2 aspiration pneumonia, versus unclear source Blood cultures: Negative, urine culture negative Covid PCR was negative, limited 2D echo Normal LVEF,No visible vegetation on mitral or aortic valves in the limited ?views that were obtained. At the time of discharge patient was hemodynamically stable was not spiking temperature. She was at her baseline mentation. She was kept on broad-spectrum antibiotics, which were discontinued on discharge. She was also managed for SHEKHAR as well as severe dehydration, hypernatremia, she responded well to IV hydration. At the time of discharge serum creatinine has normalized hypernatremia was corrected Dehydration was resolved. She responded well to medical management and is being discharged in stable condition to home. Physical Exam Narrative: Awake and alert HENMT: COMMON NORMALS: normocephalic and atraumatic HEAD & SCALP: normocephalic and atraumatic OTHER: Extremely poor dentition Eye: COMMON NORMALS: no scleral icterus GENERAL EYE: appearance normal, both eyes and all related structures Chest: COMMONS NORMALS: normal inspection of the chest and normal palpation of entire chest wall CHEST: Yes Symmetrical chest wall rise Resp: COMMON NORMALS: normal respiratory effort, No retractions, No use of accessory muscles and clear to auscultation bilaterally EFFORT & INSPECTION: Yes symmetric chest movement AUSCULTATION: clear to auscultation bilaterally Cardio: COMMON NORMALS: regular rate, regular rhythm, S1 normal heart sound present, S2 normal heart sound present, No gallops present (Cardio), No murmurs present (Cardio), No rub (Cardio) and Peripheral pulses 2+ throughout RATE: regular rate RHYTHM: regular rhythm HEART SOUNDS: S1 normal heart sound present and S2 normal heart sound present PERIPHERAL PULSES: Peripheral pulses 2+ throughout GI: COMMON NORMALS: Normal to inspection, nondistended, normoactive bowel sounds present, Soft to palpation, non-tender, No hepatosplenomegaly present and no masses AUSCULTATION: Yes normoactive bowel sounds PALPATION: Yes Soft to palpation and Yes No hepatosplenomegaly present RECTAL EXAM: deferred Extremity: COMMON NORMALS: no clubbing, cyanosis or edema and no pedal edema Discharge Data Studies Completed and Pending Completed Studies During Hospitalization Category Date Time Status XR chest 1V portable [id number] Routine Exams 04/21/21 06:00 Completed XR chest 1V portable [id number] Stat Exams 04/19/21 13:16 Completed CV. echo complete* [id number] Routine Ultrasound 04/20/21 06:00 Completed Pending at discharge Category Date Time Status Blood Culture Stat Lab 04/19/21 17:00 Results Urinalysis Stat Lab 04/19/21 16:09 Uncollected Radiology Impressions Chest X-Ray 04/21/21 06:00 IMPRESSION: Unremarkable portable chest. Laboratory Results WBC 7.7 10^3/uL (4.0-10.0) 04/22/21 04:35 RBC 3.18 10^6/uL (4.1-5.3) L 04/22/21 04:35 Hgb 8.6 g/dL (11.5-15.3) L 04/22/21 04:35 Hct 28.9 % (37.0-47.0) L 04/22/21 04:35 MCV 90.9 fl (81-99) 04/22/21 04:35 MCH 27.0 pg (28.0-34.0) L 04/22/21 04:35 MCHC 29.8 g/dL (30.0-36.0) L 04/22/21 04:35 RDW 13.7 % (12.1-15.1) 04/22/21 04:35 Plt Count 210 10^3/cmm (130-400) 04/22/21 04:35 MPV 10.9 fL (7.4-10.4) H 04/22/21 04:35 Neut % (Auto) 77.6 % 04/22/21 04:35 Lymph % (Auto) 15.0 % 04/22/21 04:35 [place] % (Auto) 6.0 % 04/22/21 04:35 Eos % (Auto) 0.1 % 04/22/21 04:35 Baso % (Auto) 0.3 % 04/22/21 04:35 Neut # (Auto) 5.97 10^3/uL (1.8-7.7) 04/22/21 04:35 Lymph # (Auto) 1.2 10^3/uL (0.8-4.8) 04/22/21 04:35 [place] # (Auto) 0.5 10^3/uL (0.2-0.9) 04/22/21 04:35 Eos # (Auto) 0.0 10^3/uL (0.0-0.8) 04/22/21 04:35 Baso # (Auto) 0.0 10^3/uL (0.0-0.1) 04/22/21 04:35 Nucleated RBC % (auto) 0 % 04/22/21 04:35 Nucleated RBCs # 0.0 /100WBC 04/22/21 04:35 Sodium 140 mmol/L (136-145) 04/22/21 04:35 Potassium 3.2 mmol/L (3.5-5.1) L 04/22/21 04:35 Chloride 108 mmol/L (98-107) H 04/22/21 04:35 Carbon Dioxide 24 mmol/L (22-29) 04/22/21 04:35 Anion Gap 11.2 (5-19) 04/22/21 04:35 BUN 11 mg/dL (6-20) 04/22/21 04:35 Creatinine 0.7 mg/dL (0.5-0.9) 04/22/21 04:35 GFR Calculation 97.0 mL/min (90-130) 04/22/21 04:35 Glucose 94 mg/dL (65-115) 04/22/21 04:35 Calculated Osmolality 289 mOsm/kg (285-295) 04/22/21 04:35 Lactic Acid 2.1 mmol/L (0.5-2.2) 04/19/21 13:41 Lactic Acid (Sepsis) 2.7 mmol/L (0.5-2.2) H 04/19/21 17:12 Calcium 8.9 mg/dL (8.5-10.5) 04/22/21 04:35 Total Bilirubin 0.4 mg/dL (0.15-1.2) 04/22/21 04:35 AST 23 U/L (0-32) 04/22/21 04:35 ALT 28 U/L (0-33) 04/22/21 04:35 Alkaline Phosphatase 112 IU/L (35-105) H 04/22/21 04:35 Total Protein 6.7 g/dL (6.6-8.7) 04/22/21 04:35 Albumin 2.8 g/dL (3.5-5.2) L 04/22/21 04:35 Globulin 3.9 g/dL (1.3-4.6) 04/22/21 04:35 Lipase 55 U/L (13-60) 04/19/21 12:55 Procalcitonin 3.08 ng/mL (0-0.5) H 04/20/21 04:55 TSH 1.12 uIU/mL (0.27-4.20) 04/20/21 04:55 Urine Color Yellow (Yellow) 04/21/21 17:33 Urine Appearance Clear (CLEAR) 04/21/21 17:33 Urine pH 5 (5-7) 04/21/21 17:33 Ur Specific [place] 1.010 (1.005-1.030) 04/21/21 17:33 Urine Protein Neg (Negative) 04/21/21 17:33 Urine Glucose (UA) Norm (Normal) 04/21/21 17:33 Urine Ketones Negative (Negative) 04/21/21 17:33 Urine Blood Neg (Negative) 04/21/21 17:33 Urine Nitrate Negative (Negative) 04/21/21 17:33 Urine Bilirubin Neg (Negative) 04/21/21 17:33 Urine Urobilinogen Norm mg/dL (Negative) 04/21/21 17:33 Ur Leukocyte Esterase Negative (Negative) 04/21/21 17:33 Nasal Influ A H1 2009 PCR Not detected (NOT DETECT) 04/19/21 19:36 Vancomycin Trough 5.1 ug/mL (10-15) L 04/21/21 18:50 Coronavirus 229E (PCR) Not detected (NOT DETECT) 04/19/21 17:07 Influenza A (H1) PCR Not detected (NOT DETECT) 04/19/21 19:36 Influenza A (H3) PCR Not detected (NOT DETECT) 04/19/21 19:36 Influenza Type A Ag Cancelled 04/19/21 17:07 Influenza Type A (PCR) Not detected (NOT DETECT) 04/19/21 19:36 Influenza Type B Ag Cancelled 04/19/21 17:07 Influenza Type B (PCR) Not detected (NOT DETECT) 04/19/21 19:36 SARS-CoV-2 (PCR) Not detected (NOT DETECT) 04/19/21 17:07 Vitals Last Vital Signs Temp 98.5 F 04/23/21 08:00 Pulse 88 04/23/21 08:00 Resp 18 04/23/21 08:00 BP 106/68 04/23/21 08:00 Pulse Ox 98 04/23/21 08:00 Discharge Plan Discharge Patient Disposition: Home Condition: Stable Prescriptions: Continued meloxicam 7.5 mg tablet 7.5 mg PO DAILY 0RF levothyroxine [Euthyrox] 50 mcg tablet 50 mcg PO DAILY 0RF risperidone [Risperdal] 1 mg tablet 1 mg PO BID Qty: 60 5RF glycopyrrolate 1 mg tablet 1 mg PO BID Qty: 60 5RF trazodone 150 mg tablet 300 mg PO BEDTIME 0RF Discharge Orders: Discharge Order (Routine); Ordered 04/23/21 Ordered By: Romeo Garza Referrals: Sheryl Michelle FNP [Primary Care Provider] - 2 weeks (Please call on Saturday to make appointment in 2 weeks) Patient Instructions: Sepsis (GEN), Opioid Safety Discharge Attestations Time Spent in Discharge Care*: greater than 30 min Specific Discharge Activities: educating and/or supporting family/caregiver, discussing with gearcase assembler/social workers/dc planners, documenting/other paperwork and evaluating patient/reviewing data Quality Metrics Clinical Quality Measures [ No reported AMI, CVA or VTE this stay] Coding Level of Care Code Acute Chg FW DC note Exam Detailed Diagnoses SHEKHAR (acute kidney injury) N17.9 Hypernatremia E87.0 Sepsis A41.9 Severe dehydration E86.0
[2021-04-23 11:35] VITALS: BP 118/80; PULSE 79; RESP 18; TEMP 37.1; O2SAT 98
--- NOTE | 2021-04-23 12:11 | PC.NURSE ---
Discharge instructions gone over with parents. Verbalized understanding.
[2021-04-23 12:17] VITALS: BP 118/80; PULSE 79; RESP 18; TEMP 37.1; O2SAT 98
== END 2021-04-23 12:18 | disposition home or self-care (01) | DRG 871 ==
LOC: ER 15:28 → MEDSURG 20:29
PROVIDERS: Emergency Medicine; Physician Assistant; Admitting Provider Internal Medicine; Emergency Provider Family Medicine; PCP Registered Nurse; Visit Provider Internal Medicine
DX: A41.9 Sepsis, unspecified organism (principal); J69.0 Pneumonitis due to inhalation of food and vomit; E87.0 Hyperosmolality and hypernatremia; Q91.3 Trisomy 18, unspecified; F73 Profound intellectual disabilities; N17.9 Acute kidney failure, unspecified; R64 Cachexia; Z68.1 Body mass index [BMI] 19.9 or less, adult; G47.00 Insomnia, unspecified; E86.0 Dehydration
CPT/HCPCS: 36415; 71045; 80053; 80202; 81003; 83605; 83690; 84145; 84443; 85025; 87040; 87086; 87400; 87631; 87635; 87641; 93306; 96365; 96366; 96367; 96372; 99285; J1650; J2543; J3480; J7030; J7799

== ENCOUNTER 2023-06-16 12:39 | Inpatient (IN) | payer MEDICARE, MEDICAID, SELFPAY ==
[2023-06-16] VITALS (94 sets, daily range): BP systolic 93–181; BP diastolic 64–112; PULSE 59–119; RESP 9–71; TEMP 35.1–37.1; O2SAT 91–100; BMI 22.8; BMI 18.5
--- NOTE | 2023-06-16 13:29 | XRR_ITS ---
PROCEDURE INFORMATION: Exam: XR Chest Exam date and time: 06/16/2023 1:31 PM Age: 32 years old Clinical indication: Other vascular access device placement or adjustment; Central line, non-tunnelled; Additional info: Central line placement TECHNIQUE: Imaging protocol: Radiologic exam of the chest. Views: 1 view. COMPARISON: CR XR chest 1V portable [id number] 04/21/2021 4:28 AM FINDINGS: Tubes, catheters and devices: Right IJ central venous catheter with its tip overlying the right atrium. Lungs: Unremarkable. No consolidation. Pleural spaces: No pneumothorax, pleural effusion. Heart/Mediastinum: Unremarkable. No cardiomegaly. Bones/joints: Unremarkable. XR/XR chest 1V portable [id number] IMPRESSION: Right IJ central venous catheter with the tip overlying the right atrium. No visible pneumothorax.
[2023-06-16 13:38] LABS: Basophils # 0.1 10^3/uL (0.0-0.1); Basophils % 0.3 %; Hematocrit 50.4 % (36-47); Lymphocytes # 0.8 10^3/uL (0.8-4.8); Lymphocytes % 4.3 %; Mean Corpuscular HGB Conc 28.2 g/dL (30-55); Mean Corpuscular Hemoglobin 26.3 pg (27-33); Mean Corpuscular Volume 93.5 fl (85-98); Mean Platelet Volume 11.4 fL (7.4-10.4); Monocytes # 0.7 10^3/uL (0.2-0.9); Monocytes % 3.9 %; Neutrophils # 17.43 10^3/uL (1.8-7.7); Neutrophils % 90.7 %; Nucleated Red Blood Cells % 0 %; Platelet Count 364 10^3/cmm (157-399); Red Blood Count 5.39 10^6/uL (3.85-5.65); Red Cell Distribution Width 16.2 % (12.1-15.1); White Blood Count 19.22 10^3/uL (3.29-11.43)
[2023-06-16] MEDS: sodium chloride 0.9% 1,000 ML 999 ML IV (13:40)
--- NOTE | 2023-06-16 13:45 | ECG_ITS ---
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 Measurements Intervals [place] Rate: 120 P: 71 DC: 93 QRS: 57 QRSD: 69 T: 67 QT: 309 QTc: 436 Interpretive Statements SINUS TACHYCARDIA WITH SHORT DC INTERVAL POSSIBLE RIGHT VENTRICULAR CONDUCTION DELAY [RSR (QR) IN V1/V2] Possible right atrial enlargement MODERATE ST DEPRESSION [0.05+ mV ST DEPRESSION] No previous ECG available for comparison Electronically Signed On 06-16-2023 20:51:43 CDT by Audrey Borges M.D. [id number]
--- NOTE | 2023-06-16 13:50 | CTR_ITS ---
PROCEDURE INFORMATION: Exam: CTA Chest With Contrast Exam date and time: 06/16/2023 2:20 PM Age: 32 years old Clinical indication: Other: Sepsis/encephalopathy TECHNIQUE: Imaging protocol: Computed tomographic angiography of the chest with contrast. Exam focused on the arteries. 3D rendering (Not supervised by radiologist): MIP and/or 3D reconstructed images were created by the technologist. Radiation optimization: All CT scans at this facility use at least one of these dose optimization techniques: automated exposure control; mA and/or kV adjustment per patient size (includes targeted exams where dose is matched to clinical indication); or iterative reconstruction. Contrast material: OMNI 350; Contrast volume: 75 ml; Contrast route: INTRAVENOUS (IV); COMPARISON: CR XR chest 1V portable [id number] 06/16/2023 1:31 PM RADIATION DOSE METRICS: Total DLP (mGy-cm): 379.87 FINDINGS: Tubes, catheters and devices: Right IJ central venous catheter with its tip terminating in the right atrium. Pulmonary arteries: Adequate visualization of the pulmonary arteries to the subsegmental level. Right lower lobe segmental and subsegmental pulmonary arterial filling defects. Aorta: Ascending aorta is normal in caliber. Trachea: Central airways are patent. Lungs: Left lower lung base subpleural ground-glass opacities. Pleural spaces: Unremarkable. No pneumothorax. No pleural effusion. Heart: Unremarkable. No cardiomegaly. No pericardial effusion. RV LV ratio = 0.9. No evidence of right heart strain. Lymph nodes: Unremarkable. No enlarged lymph nodes. Bones/joints: Unremarkable. No acute fracture. Soft tissues: Unremarkable. PROCEDURE INFORMATION: Exam: CT Abdomen And Pelvis With Contrast Exam date and time: 06/16/2023 2:20 PM Age: 32 years old Clinical indication: Other: Sepsis/encephalopathy TECHNIQUE: Imaging protocol: Computed tomography of the abdomen and pelvis with contrast. Radiation optimization: All CT scans at this facility use at least one of these dose optimization techniques: automated exposure control; mA and/or kV adjustment per patient size (includes targeted exams where dose is matched to clinical indication); or iterative reconstruction. Contrast material: OMNI 350; Contrast volume: 75 ml; Contrast route: INTRAVENOUS (IV); COMPARISON: CR XR hip RT 1V wo/w pel [id number] 04/22/2019 1:03 PM RADIATION DOSE METRICS: Total DLP (mGy-cm): 379.87 FINDINGS: Liver: Normal. No mass. Gallbladder and bile ducts: Multiple calcified gallstones are present. Pancreas: Normal. No ductal dilation. Spleen: Normal. No splenomegaly. Adrenal glands: Normal. No mass. Kidneys and ureters: No suspicious renal mass. No hydronephrosis or nephrolithiasis. Ureters are normal. Bilateral renal cysts with the largest in the right inter pole measuring 2.4 centimeters. Stomach and bowel: No bowel obstruction. Stomach is normal in appearance. No mucosal thickening. There is excessive colonic stool content. Consistent with constipation. Appendix: No evidence of appendicitis. Intraperitoneal space: Unremarkable. No free air. No significant fluid collection. Vasculature: Unremarkable. No abdominal aortic aneurysm. Lymph nodes: Unremarkable. No enlarged lymph nodes. Urinary bladder: Unremarkable as visualized. Reproductive: Unremarkable as visualized. Bones/joints: Unremarkable. No acute fracture. Soft tissues: Unremarkable. CT/CT angio chest w abd pel w con IMPRESSION: Right lower lobe segmental and subsegmental pulmonary embolism. The aforementioned findings initiated a critical results communication pathway. An addendum will be issued at the time of clinician notification. IMPRESSION: 1. Cholelithiasis, with mild wall thickening follow-up evaluation right upper quadrant sonogram may be obtained. 2. There is excessive colonic stool content. Consistent with constipation. COMMENTS: Consistent with the [employer] [employer]'s Incidental Findings Committee white paper (J Am Abran Radiol 2018): Any incidental renal lesion less than 1 cm or classified as too small to characterize, or any incidental cystic renal lesion characterized as simple-appearing, is likely benign. No follow-up imaging is recommended for these lesions per consensus recommendations based on imaging criteria.
[2023-06-16 14:02] LABS: Troponin(5th) Baseline 27 ng/L (0-10)
[2023-06-16 14:03] LABS: Alanine Aminotransferase 236 U/L (0-33); Albumin Level 4.5 g/dL (3.5-5.2); Alkaline Phosphatase 230 U/L (35-105); Aspartate Amino Transferase 330 U/L (0-32); C Reactive Protein 39.7 mg/L (0.0-4.9); Calcium 9.5 mg/dL (8.5-10.5); Carbon Dioxide 27 mmol/L (22-29); Chloride 122 mmol/L (98-107); Creatinine Clr Calc Pharmacy 10.6427; Glomerular Filtration Rate 12.8 mL/min (90-130); Glucose 221 mg/dL (65-115); Lipase 197 U/L (13-60); Total Bilirubin 0.4 mg/dL (0.15-1.2); Total Protein 9.5 g/dL (6.6-8.7)
[2023-06-16] MEDS: bacitracin ointment Pkt 1 EACH TOPICAL (14:09)
[2023-06-16] MEDS: linezolid premix 600 MG/300 ML PREMIX 300 MG IV (14:09)
[2023-06-16 14:10] LABS: Procalcitonin 1.64 ng/mL (0-0.5)
[2023-06-16 14:10] LABS: INR 1.35 (0.8-1.2); Partial Thromboplastin Time 29.5 SECONDS (23.9-36.7)
--- NOTE | 2023-06-16 14:10 | PC.NURSE ---
PER STEVIE, X2 BLOOD CULTURE SETS FROM CENTRAL LINE DUE TO TIME AND CRITICAL PT.
[2023-06-16] MEDS: norepinephrine 4 MG/250 ML BAG 22.5 MG IV (14:15)
--- NOTE | 2023-06-16 14:16 | W.ED.WEAKNES ---
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 She has profound intellectual disability contractures. She is able to scoot but not able to walk she is able to vocalize some sounds but not able to verbally communicate for the last 2 to 3 days she has not been able to eat or drink and she has not been responding at her normal baseline. On arrival here she is lethargic appears cachectic with severe dryness in her mouth she does respond to painful stimuli by crying out but otherwise does not follow any commands no response to verbal stimuli the exteriorly tachycardic initially with a rate in the 150s hypotensive blood pressure in the 60s and 70s Complaint: generalized weakness Onset (ago): day(s) (3-4) Duration: progressively worsening Location: generalized Relieving factors: none Exacerbating factors: none Associated symptoms: Reports decreased appetite, easy bruising and other (Review of systems per the family); Denies chest pain, melena, dysuria, fever(s), myalgias, nausea, rash, short of breath or vomiting Review of Systems Const: Denies: fever(s) Card: Denies: chest pain Resp: Denies: dyspnea GI: Denies: abdominal pain, nausea, vomiting, diarrhea or melena : Denies: dysuria Skin/Breast: Reports: other (New bruising right hip); Denies: rash Jackson/Lymph: Reports: easy bruising [facility] ED PFSH: Medical History Profound intellectual disability Severe dehydration Sepsis Hypernatremia SHEKHAR (acute kidney injury) Insomnia Social History Smoking and tobacco/nicotine status: never used tobacco/nicotine Physical Exam Const: ORIENTATION/CONSCIOUSNESS: Yes patient obtunded HENMT: COMMON NORMALS: normocephalic, atraumatic and hearing grossly normal bilaterally HEAD & SCALP: normocephalic and atraumatic Resp: COMMON NORMALS: normal respiratory effort, No retractions, No use of accessory muscles and clear to auscultation bilaterally AUSCULTATION: clear to auscultation bilaterally Cardio: COMMON NORMALS: regular rhythm and No murmurs present (Cardio) RATE: tachycardic RHYTHM: regular rhythm GI: COMMON NORMALS: Soft to palpation and No hepatosplenomegaly present AUSCULTATION: Yes normoactive bowel sounds PALPATION: Yes Soft to palpation, No Tenderness to palpation present (GI), No Guarding due to palpation present (GI) and Yes No hepatosplenomegaly present OTHER: Palpable mass infraumbilical to the left of the midline not pulsatile Extremity: COMMON NORMALS: normal to inspection, capillary refill normal, no clubbing, cyanosis or edema, no calf tenderness and no pedal edema Skin: COMMON NORMALS: no rashes or lesions noted GENERAL SKIN EXAM: no rashes or lesions noted Procedures Central Line Placement Right IJ: Time Out Performed: Yes Patient Placed on Monitor/Pulse Ox: Yes MD Prep: mask, gown and gloves Central Line Prep: Chlorhexidine scrub Local Anesthetic: lidocaine 1% Amount of anesthesia used (mL): 5 Ultrasound Used for Placement: Yes Central Line Lumen Inserted: triple Post Procedure: sutured in place, good blood return, all ports aspirated, flushed, capped and sterile dressing applied Post Procedure X-Ray: tip of catheter in good position and no pneumothorax seen Patient Tolerated Procedure: well Complications: none Additional Comments: Central line placed the patient in Trendelenburg position first attempt no complications. On the first placement chest x-ray showed lying fairly deep even though we held back because of her body habitus new the entire line could not be used. Pulled back 4 cm in your second x-ray confirms good placement with tip overlying the atrium Course Vital Signs: Vital signs: Vital Signs Temperature 98.8 F 06/16/23 12:46 Pulse Rate 76 06/16/23 15:50 Respiratory Rate 20 H 06/16/23 15:50 Blood Pressure 121/87 06/16/23 15:50 Pulse Oximetry 100 06/16/23 15:50 Oxygen Delivery Me thod Room Air 06/16/23 14:01 MDM - Weakness Medical Decision Making On arrival patient was tachycardic and for the most part obtunded she responded to painful stimuli only. Family reports she been this way for about 3 days a lot of dried mucus in the mouth and teeth. No IV access was immediately available I placed a ultrasound-guided central line emergently begin resuscitating with fluids cultures were also drawn from this. So that we had 2 cultures to work off of the cultures were temples taken from the central line as we cannot get a peripheral draw without significantly delaying cultures. Repeat blood work showed improvement of her hyponatremia clinically she improved significantly resolving hypotension as well as the tachycardia. Will admit to the ICU prophylactically started on linezolid and meropenem. Discussed with the family. Medical Records I reviewed the patient's medical records. Lab Data I reviewed the patient's lab results. 06/16/23 14:42 06/16/23 14:42 Radiology Impressions Chest X-Ray 06/16/23 13:29 IMPRESSION: Right IJ central venous catheter with the tip overlying the right atrium. No visible pneumothorax. Chest/Abdomen/Pelvis CT 06/16/23 13:50 IMPRESSION: Right lower lobe segmental and subsegmental pulmonary embolism. The aforementioned findings initiated a critical results communication pathway. An addendum will be issued at the time of clinician notification. IMPRESSION: 1. Cholelithiasis, with mild wall thickening follow-up evaluation right upper quadrant sonogram may be obtained. 2. There is excessive colonic stool content. Consistent with constipation. COMMENTS: Consistent with the [employer]'s Incidental Findings Committee white paper (J Am Abran Radiol 2018): Any incidental renal lesion less than 1 cm or classified as too small to characterize, or any incidental cystic renal lesion characterized as simple-appearing, is likely benign. No follow-up imaging is recommended for these lesions per consensus recommendations based on imaging criteria. ADDENDUM: 06/16/23 1449 THIS REPORT CONTAINS FINDINGS THAT MAY BE CRITICAL TO PATIENT CARE. The findings were verbally communicated via telephone conference with JOVANI Helton at 2:47 PM CDT on 06/16/2023. The findings were acknowledged and understood. Laboratory Results WBC 11.10 10^3/uL (3.29-11.43) 06/16/23 14:42 RBC 3.50 10^6/uL (3.85-5.65) L 06/16/23 14:42 Hgb 9.30 g/dL (11.27-16.99) L D 06/16/23 14:42 Hct 33.4 % (36-47) L D 06/16/23 14:42 MCV 95.4 fl (85-98) 06/16/23 14:42 MCH 26.6 pg (27-33) L 06/16/23 14:42 MCHC 27.8 g/dL (30-55) L 06/16/23 14: RDW 16.2 % (12.1-15.1) H 06/16/23 14:42 Plt Count 212 10^3/cmm (157-399) D 06/16/23 14:42 MPV 11.1 fL (7.4-10.4) H 06/16/23 14:42 Neut % (Auto) 87.8 % 06/16/23 14: Lymph % (Auto) 3.8 % 06/16/23 14: [place] % (Auto) 7.0 % 06/16/23 14: Eos % (Auto) 0.0 % 06/16/23 14: Baso % (Auto) 0.3 % 06/16/23 14: Neut # (Auto) 9.75 10^3/uL (1.8-7.7) H 06/16/23 14:42 Lymph # (Auto) 0.4 10^3/uL (0.8-4.8) L 06/16/23 14:42 [place] # (Auto) 0.8 10^3/uL (0.2-0.9) 06/16/23 14: Eos # (Auto) 0.0 10^3/uL (0.0-0.8) 06/16/23 14:42 Baso # (Auto) 0.0 10^3/uL (0.0-0.1) 06/16/23 14: Nucleated RBC % (auto) 0 % 06/16/23 14: Nucleated RBCs # 0.0 /100WBC 06/16/23 14: PT 17.20 SECONDS (12.1-14.9) H 06/16/23 13:30 INR 1.35 (0.8-1.2) H 06/16/23 13:30 APTT 29.5 SECONDS (23.9-36.7) 06/16/23 13:30 Sodium 162 mmol/L (136-145) H* 06/16/23 14:42 Potassium 3.7 mmol/L (3.5-5.1) 06/16/23 14:42 Chloride 128 mmol/L (98-107) H 06/16/23 14:42 Carbon Dioxide 23 mmol/L (22-29) 06/16/23 14:42 Anion Gap 14.7 (5-19) 06/16/23 14:42 BUN 123 mg/dL (6-20) H* 06/16/23 14:42 Creatinine 3.1 mg/dL (0.5-0.9) H 06/16/23 14:42 GFR Calculation 17.2 mL/min (90-130) L 06/16/23 14:42 Glucose 235 mg/dL (65-115) H 06/16/23 14:42 Calculated Osmolality 381 mOsm/kg (285-295) H 06/16/23 14:42 Lactic Acid 1.2 mmol/L (0.5-2.2) 06/16/23 15:01 Calcium 7.2 mg/dL (8.5-10.5) L 06/16/23 14:42 Total Bilirubin 0.3 mg/dL (0.15-1.2) 06/16/23 14:42 AST 186 U/L (0-32) H 06/16/23 14:42 ALT 133 U/L (0-33) H 06/16/23 14:42 Alkaline Phosphatase 132 U/L (35-105) H 06/16/23 14:42 Ammonia 26 umol/L (11-51) 06/16/23 14:42 Troponin T Baseline 27 ng/L (0-10) H 06/16/23 11:30 C-Reactive Protein 39.7 mg/L (0.0-4.9) H 06/16/23 11:30 Total Protein 6.1 g/dL (6.6-8.7) L D 06/16/23 14:42 Albumin 2.8 g/dL (3.5-5.2) L 06/16/23 14:42 Globulin 3.3 g/dL (1.3-4.6) 06/16/23 14:42 Lipase 197 U/L (13-60) H 06/16/23 11:30 Procalcitonin 1.64 ng/mL (0-0.5) H 06/16/23 11:30 TSH 0.30 uIU/mL (0.27-4.20) 06/16/23 14:42 Serum Ketones Negative (Negative) 06/16/23 15:01 Coronavirus 229E (PCR) Not detected (NOT DETECT) 06/16/23 13:52 Influenza Type A Ag negative (Negative) 06/16/23 13:52 Influenza Type B Ag negative (Negative) 06/16/23 13:52 SARS-CoV-2 (PCR) Not detected (NOT DETECT) 06/16/23 13:52 All radiology interpretation(s) finalized by discharge Critical Care Time Critical Care Time: Critical Care Time: Yes Total Critical Care Time: 45 Attestation: The high probability of a clinically significant, sudden or life threatening deterioration of the patient's cardiovascular respiratory system(s) required my full and direct attention, intervention and personal management. The critical care time is as shown. This time is in addition to time spent performing any reported procedures but includes the following: [x] Data and vital sign review and interpretation [x] Patient assessment, examination and intervention [x] Documentation [x] Medication orders and management Discharge Plan Discharge Patient Disposition: Admitted As Inpatient Admit Provider: Montana Peters Clinical Impression: Sepsis, Anemia, Hypernatremia, Acute prerenal failure Condition: Stable Coding Level of Care Code ED Coupon Collection Clerk for Gregg Mathis
[2023-06-16 14:19] LABS: Influenza A by IFA negative (Negative); Influenza B by IFA negative (Negative)
[2023-06-16] MEDS: iohexol 350 mg/mL 500 mL Btl (per mL) IV (14:27)
[2023-06-16] MEDS: meropenem 500 MG in sodium chloride 0.9% (plus) 50 ML 100 MG IV (14:43)
--- NOTE | 2023-06-16 14:50 | USR_ITS ---
PROCEDURE INFORMATION: Exam: US Abdomen, Limited; Right Upper Quadrant Exam date and time: 06/16/2023 3:53 PM Age: 32 years old Clinical indication: Abdominal pain; Additional info: Abd pain TECHNIQUE: Imaging protocol: Real time ultrasound of the abdomen with image documentation. Limited exam focused on the right upper quadrant. COMPARISON: CT angio chest w abd pel w con 06/16/2023 2:20 PM FINDINGS: Liver: Normal. No masses. Gallbladder: Multiple gallbladder stones identified, there is wall thickening measuring up to 0.4 centimeters. Biliary ducts: Common bile duct measures 0.3 centimeters, within normal limits. Pancreas: Visualized pancreas is unremarkable. Right kidney: Normal. No mass. No hydronephrosis. Right upper pole 1.4 centimeters hypoechoic cyst. 2.3 centimeters right inter pole large renal cysts. US/US gall bladder [id number] IMPRESSION: Cholelithiasis with gallbladder wall thickening. No pericholecystic fluid.
[2023-06-16 14:56] LABS: Osmolality Calculated 402 mOsm/kg (285-295)
[2023-06-16 14:57] LABS: Blood Urea Nitrogen 144 mg/dL (6-20); Sodium 169 mmol/L (136-145)
[2023-06-16 14:59] LABS: Basophils % 0.3 %; Hematocrit 33.4 % (36-47); Lymphocytes # 0.4 10^3/uL (0.8-4.8); Lymphocytes % 3.8 %; Mean Corpuscular HGB Conc 27.8 g/dL (30-55); Mean Corpuscular Hemoglobin 26.6 pg (27-33); Mean Corpuscular Volume 95.4 fl (85-98); Mean Platelet Volume 11.1 fL (7.4-10.4); Monocytes # 0.8 10^3/uL (0.2-0.9); Neutrophils # 9.75 10^3/uL (1.8-7.7); Neutrophils % 87.8 %; Nucleated Red Blood Cells % 0 %; Platelet Count 212 10^3/cmm (157-399); Red Cell Distribution Width 16.2 % (12.1-15.1)
[2023-06-16 15:19] LABS: Ketone (Acetest) Serum Negative (Negative)
[2023-06-16 15:20] LABS: Ammonia 26 umol/L (11-51)
[2023-06-16 15:22] LABS: Lactic Sepsis W/Reflex 1.2 mmol/L (0.5-2.2)
--- NOTE | 2023-06-16 15:29 | ECG_ITS ---
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 Measurements Intervals [place] Rate: 75 P: 57 LA: 133 QRS: 25 QRSD: 78 T: 55 QT: 414 QTc: 464 Interpretive Statements SINUS RHYTHM Compared to ECG 06/16/2023 13:45:33 Sinus tachycardia no longer present Short LA interval no longer present ST (T wave) deviation no longer present Electronically Signed On 06-16-2023 21:01:07 CDT by Audrey Borges M.D. [id number]
[2023-06-16 15:31] LABS: Alanine Aminotransferase 133 U/L (0-33); Albumin Level 2.8 g/dL (3.5-5.2); Alkaline Phosphatase 132 U/L (35-105); Anion Gap 14.7 (5-19); Aspartate Amino Transferase 186 U/L (0-32); Calcium 7.2 mg/dL (8.5-10.5); Carbon Dioxide 23 mmol/L (22-29); Chloride 128 mmol/L (98-107); Globulin 3.3 g/dL (1.3-4.6); Glomerular Filtration Rate 17.2 mL/min (90-130); Glucose 235 mg/dL (65-115); Potassium 3.7 mmol/L (3.5-5.1); Total Bilirubin 0.3 mg/dL (0.15-1.2); Total Protein 6.1 g/dL (6.6-8.7)
[2023-06-16 15:36] LABS: Osmolality Calculated 381 mOsm/kg (285-295)
[2023-06-16 15:37] LABS: Blood Urea Nitrogen 123 mg/dL (6-20); Sodium 162 mmol/L (136-145)
[2023-06-16] MEDS: heparin 5,000 unit/mL INJ 1 mL IV (15:47)
[2023-06-16] MEDS: heparin drip 25,000 UNIT/500 ML PREMIX 9 UNIT IV (15:48)
--- NOTE | 2023-06-16 15:51 | PC.NURSE ---
per pharmacy, heparin bolus 1600 and heparin drip 450 units/hr. pt weighs 75 lb (34kg), based on protocol pt did not weigh enough for protocol.
[2023-06-16 15:53] LABS: Adenovirus Not Detected (NOT DETECT); Chlamydia Pneumoniae Not Detected (NOT DETECT); Coronavirus 229E,HKU1,NL63,OC4 Not Detected (NOT DETECT); Human Metapneumovirus Not Detected (NOT DETECT); Human Rhinovirus/Enterovirus Not Detected (NOT DETECT); Influenza A Not Detected (NOT DETECT); Influenza A H1 Not Detected (NOT DETECT); Influenza A H1-2009 Not Detected (NOT DETECT); Influenza A H3 Not Detected (NOT DETECT); Influenza B Not Detected (NOT DETECT); Mycoplasma Pneumoniae Not Detected (NOT DETECT); Parainfluenza Virus Type 1 Not Detected (NOT DETECT); Parainfluenza Virus Type 2 Not Detected (NOT DETECT); Parainfluenza Virus Type 3 Not Detected (NOT DETECT); Parainfluenza Virus Type 4 Not Detected (NOT DETECT); Respiratory Syncytial Virus A Not Detected (NOT DETECT); Respiratory Syncytial Virus B Not Detected (NOT DETECT); SARS-COV-2 Not Detected (NOT DETECT)
--- NOTE | 2023-06-16 16:10 | P.HP_ITS ---
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 History from patient is limited and was gotten from chart review. Per reports, she has not been able to eat or drink in the past 2-3 days and she has not been responding as she usually does. In the ER, she was noted to be very lethargic, dehydrated, tachycardic to the 150's and hypotensive. She was given IVFs and started on vasopressors. She also received broad spectrum antibiotics . She had improvement in her symptoms after IVF. Vasopressors was weaned off. CT chest was positive for right lower lobe segmental and sub segmental pulmonary embolism. CT abdomen showed cholelithiasis , ultrasound showed cholelithiasis with gall bladder wall thickening. Review of Systems 2 General: Reports: ROS unobtainable due to medical condition Medications/Allergies Home Medications Medication Instructions Recorded Confirmed Last Taken Type meloxicam 7.5 mg tablet 7.5 mg PO DAILY 07/07/19 06/16/23 04/17/21 History levothyroxine 50 mcg tablet 50 mcg PO QAM 04/19/21 06/16/23 06/16/23 History (Euthyrox) risperidone 1 mg tablet (Risperdal) 1 mg PO BID #60 tabs 11/06/22 06/16/23 Unknown Rx amoxicillin 875 mg-potassium 1 tab PO BID 06/16/23 06/16/23 06/16/23 History clavulanate 125 mg tablet loratadine 10 mg tablet 10 mg PO QAM 06/16/23 06/16/23 06/16/23 History trazodone 150 mg tablet 150 - 300 mg PO BEDTIME 06/16/23 06/16/23 06/15/23 History Allergies Allergy/AdvReac Type Severity Reaction Status Date / Time No Known Allergies Allergy Verified 06/16/23 14:16 PFSH Acute 2 PFSH: Medical History Profound intellectual disability Severe dehydration Sepsis Hypernatremia SHEKHAR (acute kidney injury) Insomnia Social History Smoking and tobacco/nicotine status: never used tobacco/nicotine Vitals/I&O/Wt Last Vital Signs Temp 98.8 F 06/16/23 12:46 Pulse 76 06/16/23 15:50 Resp 20 H 06/16/23 15:50 BP 121/87 06/16/23 15:50 Pulse Ox 100 06/16/23 15:50 O2 Del Method Room Air 06/16/23 14:01 06/16/23 06/16/23 06/16/23 06:59 14:59 22:59 Intake Total 1000 / 1000 373.25 / 1373.25 Balance 1000 / 1000 373.25 / 1373.25 Weight last 48 hrs Weight 34.019 kg Weight 31.751 kg Weight 34.019 kg Physical Exam 2 Const: OTHER: Awake , lethargic, acutely ill appearing HENMT: COMMON NORMALS: normocephalic, atraumatic, external ears normal, Normal external nose present, moist oral mucous membranes and oropharynx normal HEAD & SCALP: normocephalic and atraumatic NOSE: Normal external nose present E XTERNAL EAR: Yes external ears normal Eye: COMMON NORMALS: Equal, round and reactive pupils present, EOMs intact bilaterally, conjunctivae normal and no scleral icterus CONJUNCTIVA: Yes conjunctivae normal PUPIL: Yes Equal, round and reactive pupils present Neck/C-Spine: COMMON NORMALS: full ROM, no lymphadenopathy and no JVD Chest: COMMONS NORMALS: normal inspection of the chest Resp: COMMON NORMALS: normal respiratory effort and clear to auscultation bilaterally AUSCULTATION: clear to auscultation bilaterally OTHER: No wheezes or crcakles Cardio: COMMON NORMALS: no JVD, regular rate, regular rhythm, S1 normal heart sound present and S2 normal heart sound present RATE: regular rate RHYTHM: regular rhythm HEART SOUNDS: S1 normal heart sound present and S2 normal heart sound present GI: COMMON NORMALS: Normal to inspection, nondistended, normoactive bowel sounds present, Soft to palpation and non-tender PALPATION: Yes Soft to palpation Extremity: COMMON NORMALS: no pedal edema (Contracted extremity) Neuro: OTHER: Non verbal at baseline , opens eyes, no gross focal deficit Data 06/16/23 14:42 06/16/23 14:42 Micro: Microbiology 06/16/23 13:55 Blood Culture - Preliminary Blood SPECIMEN COLLECTED A&P Assessment and plan (1) Acute prerenal failure: (2) Hypernatremia: (3) Sepsis: (4) Profound intellectual disability: (5) Pulmonary embolism: (6) Elevated troponin: Plan #Concern for Severe Sepsis - hypotenstion, tachycardia, end organ injury -SHEKHAR . Source possibly GI #Tachycardia #Hypotension #Severe Dehydration -In the ER, she was noted to be very lethargic, dehydrated, tachycardia to the 150's and hypotensive. She was given IVFs for sepsis and started on vasopressors. -She had improvement in her symptoms after IVF. Vasopressors was weaned off -CT abdomen showed cholelithiasis , ultrasound showed cholelithiasis with gall bladder wall thickening, suspicious for acute cholecystitis . She has elevated liver enzymes . Her bili is WNL. Procalcitonin is elevated. -Will continue broad spectrum antibiotics with vancomcyin and zosyn for now -UA is pending , blood cultures ordered #Right lower lobe segmental and sub segmental pulmonary embolism -Patient started on heparin infusion -Patient's BP improved with IVF , hypotension is most likely from severe dehydration , sepsis vs massive PE -Will get urgent echo #Elevated Troponin -Likely due to increased demand in the setting of hypotension, tachycardia -EKG - Negative for STEMI -Echo ordered , patient on heparin -Check serial troponin,EKG -Will consult cardiology #Acute Kidney Injury -Likely pre-renal etiology from sepsis, dehydration . Her BUN is significantly elevated . No signs of GI bleeding -Ct IVfs -Strict i/o;s -Avoid nephrotoxic medications -Monitor with am bmp #Hypernatremia due to dehydration -Na -162 -Free water deficit - about 2.1L -She received about 2 L NS -Will start D5W at 50cc/hr -Trend Na levels, avoid overcorrection #Cholelithiasis, suspected acute cholecystitis #Elevated Liver Enzymes -Patient on broad spectrum antibiotics -General surgery consulted #Hypothyroidism -Ct levothyroxine -TSH - WNL VTE ppx - heparin Attestations 2 Medical Necessity Statement*: Patient to be admitted to inpatient status, her care will gross greater than 2 midnight stay. She is critically ill with severe sepsis and requires IV antibiotics, IV flluids, other supportive care and close cardiopulmonary monitoring in the ICU. Coding Level of Care Code Acute Code for Chg Fwd Diagnoses Acute prerenal failure N17.9 Hypernatremia E87.0 Sepsis A41.9 Profound intellectual disability F73 Pulmonary embolism I26.99 Elevated troponin R79.89
[2023-06-16 16:41] LABS: Adenovirus Not Detected (NOT DETECT); Chlamydia Pneumoniae Not Detected (NOT DETECT); Coronavirus 229E,HKU1,NL63,OC4 Not Detected (NOT DETECT); Human Metapneumovirus Not Detected (NOT DETECT); Human Rhinovirus/Enterovirus Not Detected (NOT DETECT); Influenza A Not Detected (NOT DETECT); Influenza A H1 Not Detected (NOT DETECT); Influenza A H1-2009 Not Detected (NOT DETECT); Influenza A H3 Not Detected (NOT DETECT); Influenza B Not Detected (NOT DETECT); Mycoplasma Pneumoniae Not Detected (NOT DETECT); Parainfluenza Virus Type 1 Not Detected (NOT DETECT); Parainfluenza Virus Type 2 Not Detected (NOT DETECT); Parainfluenza Virus Type 3 Not Detected (NOT DETECT); Parainfluenza Virus Type 4 Not Detected (NOT DETECT); Respiratory Syncytial Virus A Not Detected (NOT DETECT); Respiratory Syncytial Virus B Not Detected (NOT DETECT); SARS-COV-2 Not Detected (NOT DETECT)
[2023-06-16 16:59] LABS: Troponin 5 2HR 37.68 ng/L (0-10)
[2023-06-16 17:21] LABS: Troponin 5 2HR Delta 10.68 ABS# (0-10)
[2023-06-16] MEDS: heparin drip 25,000 UNIT/500 ML PREMIX 7.70000000000000018 UNIT IV (17:34)
--- NOTE | 2023-06-16 17:34 | USCV_ITS ---
Ramsay Sandi Age: 32 Gender: F : 1990 Exam Date: 06/16/2023 18:17 Ordering Phys: Montana Peters MD Technologist: Khari Urbina [place] [facility] [place]: PE BP: 131 / 92 HR: 71 Rhythm: Sinus Technical Quality: Adequate MEASUREMENTS (Male / Female) Normal Values 2D ECHO LV Diastolic Diameter PLAX 2.5 cm 4.2 - 5.9 / 3.9 - 5.3 cm IVS Diastolic Thickness 1.1 cm 0.6 - 1.0 / 0.6 - 0.9 cm LVPW Diastolic Thickness 1.3 cm 0.6 - 1.0 / 0.6 - 0.9 cm LVOT Diameter 1.8 cm LV Ejection Fraction MOD 2C 65.9 % LV Ejection Fraction 2C AL 64.3 % LA Diameter 2.5 cm RA Systolic Volume 4C AL 16.0 ml RA Systolic Volume 4C MOD 15.5 ml LA Sys Volume AL 16.6 cm cubed LA Sys Volume Index AL 17.2 cm cubed/m squared Aorta at Sinotubular Diameter 2.0 cm IVC Diameter 0.9 cm M-MODE LA Ao Ratio MM 1.0 AV Cusp Separation MM 1.0 cm DOPPLER AV Peak Velocity 99.0 cm/s LVOT Peak Velocity 69.0 cm/s AV Area Cont Eq vti 1.9 cm squared AV Area Cont Eq pk 1.7 cm squared MV Peak Velocity 104.3 cm/s MV Area PHT 5.6 cm squared Mitral E to A Ratio 0.8 TV Peak Velocity 331.0 cm/s TR Peak Velocity 392.0 cm/s TR Peak Gradient 61.5 mmHg TR Mean Velocity 291.0 cm/s TR Mean Gradient 37.4 mmHg TR Velocity Time Integral 113.5 cm PV Peak Velocity 87.3 cm/s RV Ejection Time 0.4 s FINDINGS Left Ventricle Normal LV size ejection fraction of around 55%,( visual). Relative hypokinesia of the anteroseptal segment Right Ventricle Normal RV size ejection fraction Right Atrium The right atrium is normal in size. Left Atrium The left atrium is normal in size. Mitral Valve Trace mitral valve regurgitation. Aortic Valve No gross abnormalities noted Tricuspid Valve Mild tricuspid valve regurgitation. Pulmonic Valve Trace pulmonary valve regurgitation. Pericardium No pericardial effusion. Aorta Normal aortic annulus size. IVC Normal inferior vena cava. CONCLUSIONS Normal LV size ejection fraction of around 55%,( visual). Relative hypokinesia of the anteroseptal segment. Normal RV size ejection fraction No evidence of RV strain Trace mitral valve regurgitation. Mild tricuspid valve regurgitation. Trace pulmonary valve regurgitation. Moderate pulmonary hypertension with an estimated pulmonary artery peak systolic pressure of 65 mmHg and a mean pressure of 40 mmHg. There is no pericardial effusion. There are no intracardiac masses. Comparison with the previous study is difficult because of the difference in the technical quality. Dr Audrey Borges MD [facility] (Electronically Signed) Final Date: 16 June 2023 21:21 S
[2023-06-16] MEDS: piperacillin-tazobactam 3.375 GM in sodium chloride 0.9% (plus) 50 ML IV (17:35)
[2023-06-16] MEDS: sodium chloride 0.9% 1,000 ML 50 ML IV (17:42)
[2023-06-16 19:31] LABS: Troponin 5 6HR 41.77 ng/L (0-10)
[2023-06-16 19:32] LABS: Alanine Aminotransferase 150 U/L (0-33); Albumin Level 3.1 g/dL (3.5-5.2); Alkaline Phosphatase 149 U/L (35-105); Anion Gap 12.9 (5-19); Aspartate Amino Transferase 182 U/L (0-32); Calcium 7.6 mg/dL (8.5-10.5); Carbon Dioxide 24 mmol/L (22-29); Chloride 129 mmol/L (98-107); Creatinine Clr Calc Pharmacy 13.2301; Globulin 3.8 g/dL (1.3-4.6); Glomerular Filtration Rate 21.1 mL/min (90-130); Glucose 140 mg/dL (65-115); Magnesium 3.8 mg/dL (1.7-2.3); Osmolality Calculated 369 mOsm/kg (285-295); Potassium 3.9 mmol/L (3.5-5.1); Total Bilirubin 0.3 mg/dL (0.15-1.2); Total Protein 6.9 g/dL (6.6-8.7)
[2023-06-16 19:35] LABS: Blood Urea Nitrogen 105 mg/dL (6-20); Sodium 162 mmol/L (136-145); Troponin 5 6HR Delta 14.77 ng/L (0-12)
[2023-06-16] MEDS: vancomycin 500 MG in sodium chloride 0.9% (plus) 100 ML 200 MG IV (19:39)
[2023-06-16] MEDS: dextrose 5% 1,000 ML 50 ML IV (19:40)
--- NOTE | 2023-06-16 20:50 | P.CONIM_ITS ---
Providers/Reason For Consult 2 Consulting Physician/Specialty*: Dr. 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 She was found to be very lethargic and in prerenal acute renal failure. HPI and review of systems are limited secondary to patient's intellectual disability. During her workup a CT abdomen pelvis was performed and cholelithiasis was identified with 4 mm gallbladder wall thickening. I was talking to the caregiver at the bedside who reports that she eats by mouth and has not had any nausea or vomiting or abdominal pain. She denies any diarrhea or blood in the stool. Review of Systems 2 General: Reports: ROS unobtainable due to medical condition Medications/Allergies Home Medications Medication Instructions Recorded Confirmed Last Taken Type meloxicam 7.5 mg tablet 7.5 mg PO DAILY 07/07/19 06/16/23 04/17/21 History levothyroxine 50 mcg tablet 50 mcg PO QAM 04/19/21 06/16/23 06/16/23 History (Euthyrox) risperidone 1 mg tablet (Risperdal) 1 mg PO BID #60 tabs 11/06/22 06/16/23 Unknown Rx amoxicillin 875 mg-potassium 1 tab PO BID 06/16/23 06/16/23 06/16/23 History clavulanate 125 mg tablet loratadine 10 mg tablet 10 mg PO QAM 06/16/23 06/16/23 06/16/23 History trazodone 150 mg tablet 150 - 300 mg PO BEDTIME 06/16/23 06/16/23 06/15/23 History Allergies Allergy/AdvReac Type Severity Reaction Status Date / Time No Known Allergies Allergy Verified 06/16/23 14:16 Current Medications Generic Name Dose Route Start Last Admin Trade Name Freq PRN Reason Stop Dose Admin Heparin Sodium (Porcine) 0 unit 06/16/23 14:50 06/16/23 15:47 Heparin 5,000 Unit/Ml Inj 1 Ml IV 1,600 unit PRN PRN Administration Heparin weight-base protocol Protocol norepinephrine 4 mg in 250 mls @ 0 mls/hr 06/16/23 13:30 06/16/23 15:17 Levophed IV 0 mcg/min .Q0M ANAM 0 mls/hr Titration Protocol Per Protocol Piperacillin Sod/Tazobactam 50 mls @ 12.5 mls/hr 06/16/23 17:30 06/16/23 17:35 Sod 3.375 gm/ Sodium Chloride IV 12.5 mls/hr Q12H ANAM Administration Heparin Sodium/Sodium Chloride 25,000 unit in 500 mls @ 0 mls/hr 06/16/23 17:15 06/16/23 17:34 Heparin Drip IV 14 unit/kg/hr .Q0M ANAM 7.7 mls/hr Administration Protocol Per Protocol Vancomycin HCl 500 mg/ Sodium 100 mls @ 200 mls/hr 06/16/23 18:45 06/16/23 19:39 Chloride IV 200 mls/hr Q72H ANAM Administration Dextrose 1,000 mls @ 50 mls/hr 06/16/23 19:00 06/16/23 19:40 D5w IV 50 mls/hr .Q20H ANAM Administration Risperidone 1 mg 06/16/23 18:00 06/16/23 17:29 Risperidone Odt 0.5 Mg Tablet PO Not Given BID ANAM PFSH Acute 2 PFSH: Medical History Profound intellectual disability Severe dehydration Sepsis Hypernatremia SHEHKAR (acute kidney injury) Insomnia Social History Smoking and tobacco/nicotine status: never used tobacco/nicotine Vitals/I&O/Wt Last Vital Signs Temp 95.2 F L 06/16/23 16:00 Pulse 64 06/16/23 18:00 Resp 18 06/16/23 18:00 BP 123/83 06/16/23 18:00 Pulse Ox 95 06/16/23 18:00 O2 Del Method Room Air 06/16/23 18:00 06/16/23 06/16/23 06/16/23 06:59 14:59 22:59 Intake Total 1000 / 1000 389.45 / 1389.45 Output Total 0 / 0 Balance 1000 / 1000 389.45 / 1389.45 Weight last 48 hrs Weight 60 lb 9.6 oz Weight 75 lb Weight 70 lb Weight 75 lb Physical Exam 2 Narrative: General : Patient is very small for age with congenital abnormalities he is nonverbal at this time at least Head : Normal cephalic, a-traumatic. Ears : Pinnae and external canal are normal. Hearing is normal. Eyes : PERRLA, Sclera and injection are normal. No conjunctival discharge. Nose : Mucous membranes are without erythema. Throat : buccal mucosa is normal, gums are without significant recession or hypertrophy. Lungs : Equal chest rise bilaterally, no use of accessory muscles, trachea is midline. Cor : Rate and rhythm are normal. Abdomen : Soft, ND, NT, no g/r/m Extremities : No edema, no cyanosis or clubbing, dorsalis pedis pulses are present bilaterally, non-tender to palpation of calves. Upper extremities are normal bilaterally. Back : non-tender to palpation, no CVA tenderness. Neuro : CN II - XII intact, Upper and lower extremities have equal and full strength Data 06/16/23 14:42 06/16/23 18:59 Micro: Microbiology 06/16/23 13:55 Blood Culture - Preliminary Blood SPECIMEN COLLECTED A&P Assessment and plan (1) Chronic calculous cholecystitis: Plan Patient is nontender and asymptomatic Speech evaluation and advance to diet approved by speech No acute surgical intervention Medical management per hospitalist Coding Level of Care Code 72373 Diagnoses Chronic calculous cholecystitis K80.10
--- NOTE | 2023-06-16 21:22 | ECG_ITS ---
[facility] Test Date: 2023-06-16 Pat Name: Sandi Ramsay Department: Room: ICU10 Gender: Female Medical Photographer: : 1990 Requested By: Victoria Ng Order Number: [id number] Arnol MD: Audrey Borges M.D. Measurements Intervals [place] Rate: 72 P: 68 VA: 126 QRS: 59 QRSD: 80 T: 31 QT: 432 QTc: 474 Interpretive Statements SINUS RHYTHM Compared to ECG 06/16/2023 15:29:02 No significant changes Electronically Signed On 06-17-2023 19:32:49 CDT by Audrey Borges M.D. [id number]
[2023-06-16 22:12] LABS: Partial Thromboplastin Time 97.7 SECONDS (23.9-36.7)
--- NOTE | 2023-06-16 22:29 | PC.NURSE ---
Contacted Dr. Vigil regarding PTT and heparin titration. Ordered to use protocol for lowest weight and call with next PTT for further instruction.
[2023-06-16 23:28] LABS: Glucose Point of Care 187 mg/dL (70-110)
[2023-06-17] VITALS (287 sets, daily range): BP systolic 80–184; BP diastolic 48–103; PULSE 53–95; RESP 10–38; TEMP 35.2–36.4; O2SAT 62–100
[2023-06-17 01:26] LABS: Sodium 162 mmol/L (136-145)
[2023-06-17 03:44] LABS: Basophils % 0.2 %; Hematocrit 34.5 % (36-47); Lymphocytes # 1.4 10^3/uL (0.8-4.8); Lymphocytes % 10.5 %; Mean Corpuscular HGB Conc 28.1 g/dL (30-55); Mean Corpuscular Hemoglobin 26.8 pg (27-33); Mean Corpuscular Volume 95.3 fl (85-98); Mean Platelet Volume 10.9 fL (7.4-10.4); Monocytes # 0.5 10^3/uL (0.2-0.9); Neutrophils # 11.06 10^3/uL (1.8-7.7); Neutrophils % 84.7 %; Nucleated Red Blood Cells % 0 %; Platelet Count 209 10^3/cmm (157-399); Red Blood Count 3.62 10^6/uL (3.85-5.65); Red Cell Distribution Width 15.9 % (12.1-15.1); White Blood Count 13.06 10^3/uL (3.29-11.43)
[2023-06-17 03:58] LABS: Estmated Average Glucose 111; Hemoglobin A1C 5.5 % (4.0-6.0)
[2023-06-17 04:04] LABS: Alanine Aminotransferase 131 U/L (0-33); Albumin Level 3.1 g/dL (3.5-5.2); Alkaline Phosphatase 135 U/L (35-105); Anion Gap 11.4 (5-19); Aspartate Amino Transferase 129 U/L (0-32); Calcium 8.2 mg/dL (8.5-10.5); Carbon Dioxide 24 mmol/L (22-29); Chloride 130 mmol/L (98-107); Creatinine Clr Calc Pharmacy 17.1991; Globulin 3.5 g/dL (1.3-4.6); Glomerular Filtration Rate 28.5 mL/min (90-130); Glucose 175 mg/dL (65-115); Magnesium 3.7 mg/dL (1.7-2.3); Osmolality Calculated 367 mOsm/kg (285-295); Potassium 3.4 mmol/L (3.5-5.1); Total Bilirubin 0.2 mg/dL (0.15-1.2); Total Protein 6.6 g/dL (6.6-8.7)
[2023-06-17 04:09] LABS: Blood Urea Nitrogen 92 mg/dL (6-20); Sodium 162 mmol/L (136-145)
[2023-06-17 04:24] LABS: Partial Thromboplastin Time 82.6 SECONDS (23.9-36.7)
[2023-06-17] MEDS: piperacillin-tazobactam 3.375 GM in sodium chloride 0.9% (plus) 50 ML IV ×2 (05:55→18:15)
[2023-06-17] MEDS: levothyroxine 50 mcg Tablet PO (06:15)
[2023-06-17 09:45] LABS: Partial Thromboplastin Time 34.9 SECONDS (23.9-36.7)
[2023-06-17 10:25] LABS: Anion Gap 12.1 (5-19); Blood Urea Nitrogen 78 mg/dL (6-20); Calcium 8.7 mg/dL (8.5-10.5); Carbon Dioxide 25 mmol/L (22-29); Chloride 126 mmol/L (98-107); Creatinine Clr Calc Pharmacy 22.1371; Glomerular Filtration Rate 34.4 mL/min (90-130); Glucose 118 mg/dL (65-115); Osmolality Calculated 354 mOsm/kg (285-295); Potassium 3.1 mmol/L (3.5-5.1); Sodium 160 mmol/L (136-145)
[2023-06-17 10:58] LABS: Glucose Point of Care 110 mg/dL (70-110)
--- NOTE | 2023-06-17 11:49 | PC.SOCIAL ---
IMM update Pg. 2 of IMM updated and reviewed with patient's mother who verbalized understanding. Copy provided.
--- NOTE | 2023-06-17 12:01 | P.PN_ITS ---
Subjective 2 Subjective: Is non-verbal at baseline. Comfortable appearing. Nursing reports no issues or concerns from overnight. Medications: Reviewed: Yes Vitals/I&O/Wt Last Vital Signs Temp 96.5 F L 06/17/23 07:40 Pulse 79 06/17/23 10:15 Resp 21 H 06/17/23 10:15 BP 92/61 06/17/23 10:15 Pulse Ox 97 06/17/23 10:15 O2 Del Method Room Air 06/17/23 07:40 06/16/23 06/17/23 06/17/23 22:59 06:59 14:59 Intake Total 477.052 / 1477.052 135.34 / 1612.392 78.983 / 78.983 Output Total 0 / 0 Balance 477.052 / 1477.052 135.34 / 1612.392 78.983 / 78.983 Weight last 48 hrs Weight 66 lb 4.8 oz Weight 66 lb 4.8 oz Weight 60 lb 9.6 oz Weight 75 lb Weight 70 lb Weight 75 lb Physical Exam 2 Narrative: General: Nonverbal, comfortable appearing. Small for age. HEENT: Normocephalic, Atraumatic. External ears normal. Nasal passages patent without drainage. MMM. Heart: RRR. Resp: LCTA. No respiratory distress, no use of accessory muscles. Abd: Soft, non-tender. Non-distended. Extremities: No edema. Skin: No rash or lesions on exposed areas. Neuro: Unable to assess at this time. Data 06/17/23 03:33 06/17/23 12:38 Micro: Microbiology 06/16/23 13:30 Blood Culture - Preliminary Blood SPECIMEN COLLECTED 06/16/23 13:55 Blood Culture - Preliminary Blood SPECIMEN COLLECTED A&P Assessment and plan (1) Acute prerenal failure: (2) Hypernatremia: (3) Sepsis: (4) Profound intellectual disability: (5) Pulmonary embolism: (6) Elevated troponin: Plan 32-year-old female with a past medical history of intellectual disability, admitted for acute renal failure, severe dehydration, concern for sepsis, and pulmonary emoblism. Continue close inpatient monitoring. Concern for Severe Sepsis - hypotenstion, tachycardia, end organ injury -SHEKHAR . Source possibly GI. Continue Vanc, Zosyn. BP has been improved and stable. Not currently on vasopressors. She had improvement in her symptoms after IVF. Will continue. General surgery is consulted. CT abdomen showed cholelithiasis , ultrasound showed cholelithiasis with gall bladder wall thickening, suspicious for acute cholecystitis . She has elevated liver enzymes . Her bili is WNL. Procalcitonin is elevated. Will continue broad spectrum antibiotics. Remains hemoconcentrated with multiple electrolyte abnormalities. Sodium currently at 161, chloride at 129, BUN 105, creatinine 2.6, osmolality was calculated at 369. Magnesium is 3.7 currently. Transaminitis is slightly improved today as compared to admission. Viral respiratory panel is negative. Urine and blood cultures are pending. Will continue heparin for treatment of pulmonary embolisms. Oxygen remains within normal limits on room air. She is not tachycardic. Echocardiogram did show an elevated pulmonary artery peak pressure of 65, with a mean pressure of 40. No other abnormalities noted on echo. 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 Strict I/O's, daily weights. Recheck am labs. Continue current medications for other chronic illnesses. Code Status: Full IVF: D5W @ 50mls/hr DVT PPx: Heparin GI PPx: None ABx: Vanc, Zosyn Diet: NPO Discharge plan: TBD. Attestations 2 Medical Necessity Statement*: Will need continued hospital management for severe sepsis, dehydration, requiring IV antibiotics, IV fluids, other supportive care and close cardiopulmonary monitoring in the ICU. Coding Level of Care Code Critical Care >/= 30 minutes Critical care time (in minutes): 38 The high probability of a clinically significant, sudden or life threatening deterioration, as referenced in this documentation, required my full and direct attention, intervention and personal management. The critical care time shown is in addition to time spent performing any reported separately billable procedures and includes the following: [x] Data and vital sign review and interpretation [x ] Patient assessment, examination and intervention [x] Medication orders and management [x] Patient/Family updates as able [x] Care Coordination and Documentation. Diagnoses Acute prerenal failure N17.9 Hypernatremia E87.0 Sepsis A41.9 Profound intellectual disability F73 Pulmonary embolism I26.99 Elevated troponin R79.89
[2023-06-17 13:00] LABS: Anion Gap 11.2 (5-19); Blood Urea Nitrogen 73 mg/dL (6-20); Carbon Dioxide 26 mmol/L (22-29); Chloride 127 mmol/L (98-107); Creatinine Clr Calc Pharmacy 25.0887; Glomerular Filtration Rate 39.8 mL/min (90-130); Glucose 103 mg/dL (65-115); Osmolality Calculated 354 mOsm/kg (285-295); Potassium 3.2 mmol/L (3.5-5.1)
[2023-06-17 13:09] LABS: Sodium 161 mmol/L (136-145)
[2023-06-17] MEDS: dextrose 5% 1,000 ML 50 ML IV (13:46)
--- NOTE | 2023-06-17 14:18 | PC.NURSE ---
No urine collected in boo catheter bag. Urine is leaking around catheter into bed. Nurse verified no retention with bladder scan, flushed boo and there is no occlusion. Nurse alerted Dr briggs and received orders to remove boo. 10mL of fluid removed form balloon, catheter removed intact.
[2023-06-17 17:00] LABS: Glucose Point of Care 142 mg/dL (70-110)
[2023-06-17 17:28] LABS: Partial Thromboplastin Time 50.9 SECONDS (23.9-36.7)
[2023-06-17 17:30] LABS: Anion Gap 8.9 (5-19); Blood Urea Nitrogen 67 mg/dL (6-20); Calcium 9.1 mg/dL (8.5-10.5); Carbon Dioxide 27 mmol/L (22-29); Chloride 128 mmol/L (98-107); Creatinine Clr Calc Pharmacy 26.8807; Glucose 146 mg/dL (65-115); Osmolality Calculated 354 mOsm/kg (285-295)
[2023-06-17 17:35] LABS: Potassium 2.9 mmol/L (3.5-5.1); Sodium 161 mmol/L (136-145)
--- NOTE | 2023-06-17 19:00 | P.PN_ITS ---
Subjective 2 Subjective: Patient seen and examined. Still no abdominal pain on examination Vitals/I&O/Wt Last Vital Signs Temp 97.5 F L 06/18/23 16:00 Pulse 58 L 06/18/23 14:00 Resp 20 H 06/18/23 14:00 BP 91/57 06/18/23 14:00 Pulse Ox 97 06/18/23 14:00 O2 Del Method Room Air 06/18/23 14:00 06/18/23 06/18/23 06/18/23 06:59 14:59 22:59 Intake Total 894.167 / 1972.598 Balance 894.167 / 1972.598 Weight last 48 hrs Weight 66 lb 12.8 oz Weight 66 lb 4.8 oz Weight 66 lb 4.8 oz Physical Exam 2 Narrative: General: No acute distress, patient is nonverbal Abdomen: Soft, nontender, nondistended Data 06/18/23 04:50 06/18/23 04:50 Micro: Microbiology 06/16/23 13:30 Blood Culture - Preliminary Blood NEGATIVE TO DATE A&P Assessment and plan (1) Chronic calculous cholecystitis: Plan Patient is nontender and asymptomatic Speech evaluation and advance to diet approved by speech-medicine wants to hold off on diet 1 more day. If she does not begin getting oral nutrition tomorrow, we will need to consider at least a Dobbhoff and tube feeds No acute surgical intervention at this time, will continue to reassess Medical management per hospitalist Attestations 2 Medical Necessity Statement*: Per primary Coding Level of Care Code 75409 Diagnoses Chronic calculous cholecystitis K80.10
[2023-06-17] MEDS: potassium chloride premix 100 ML 25 MEQ IV (19:27)
--- NOTE | 2023-06-17 19:53 | PC.NURSE ---
SHift SUmmary: Uneventful shift. Mental status unchanged. Some fluctuation in Sodium levels, but they are the same by end of shift, physician aware. If a patient has not started eating by tommorow, Dr Hernandez would like to be contacted. Message to nurse order placed for this.
[2023-06-17 22:03] LABS: Anion Gap 9.7 (5-19); Blood Urea Nitrogen 57 mg/dL (6-20); Calcium 8.7 mg/dL (8.5-10.5); Carbon Dioxide 29 mmol/L (22-29); Chloride 127 mmol/L (98-107); Creatinine Clr Calc Pharmacy 28.9485; Glomerular Filtration Rate 46.9 mL/min (90-130); Glucose 110 mg/dL (65-115); Osmolality Calculated 350 mOsm/kg (285-295); Potassium 3.7 mmol/L (3.5-5.1)
[2023-06-17 22:10] LABS: Sodium 162 mmol/L (136-145)
[2023-06-17 23:59] LABS: Partial Thromboplastin Time 61.5 SECONDS (23.9-36.7)
[2023-06-18] VITALS (153 sets, daily range): BP systolic 71–116; BP diastolic 46–80; PULSE 45–85; RESP 0–26; TEMP 35.7–36.6; O2SAT 95–100
[2023-06-18 00:39] LABS: Anion Gap 11.1 (5-19); Blood Urea Nitrogen 52 mg/dL (6-20); Calcium 8.7 mg/dL (8.5-10.5); Carbon Dioxide 25 mmol/L (22-29); Chloride 126 mmol/L (98-107); Creatinine Clr Calc Pharmacy 31.3608; Glomerular Filtration Rate 51.4 mL/min (90-130); Glucose 112 mg/dL (65-115); Osmolality Calculated 341 mOsm/kg (285-295); Potassium 4.1 mmol/L (3.5-5.1); Sodium 158 mmol/L (136-145)
[2023-06-18 05:18] LABS: Platelet Count 198 10^3/cmm (157-399)
[2023-06-18] MEDS: piperacillin-tazobactam 3.375 GM in sodium chloride 0.9% (plus) 50 ML IV ×2 (05:37→17:40)
[2023-06-18] MEDS: dextrose 5% 1,000 ML 50 ML IV (05:39)
[2023-06-18 05:40] LABS: Anion Gap 9.9 (5-19); Blood Urea Nitrogen 44 mg/dL (6-20); Calcium 8.6 mg/dL (8.5-10.5); Carbon Dioxide 26 mmol/L (22-29); Chloride 123 mmol/L (98-107); Glomerular Filtration Rate 63.5 mL/min (90-130); Glucose 102 mg/dL (65-115); Osmolality Calculated 331 mOsm/kg (285-295); Potassium 3.9 mmol/L (3.5-5.1); Sodium 155 mmol/L (136-145)
[2023-06-18 07:15] LABS: Glucose Point of Care 110 mg/dL (70-110)
[2023-06-18 07:20] LABS: Partial Thromboplastin Time 68.6 SECONDS (23.9-36.7)
--- NOTE | 2023-06-18 09:06 | P.PN_ITS ---
Subjective 2 Subjective: Non-verbal. Comfortable appearing. Is awake today and appears more alert. Medications: Reviewed: Yes Vitals/I&O/Wt Last Vital Signs Temp 96.3 F L 06/18/23 07:42 Pulse 64 06/18/23 06:00 Resp 18 06/18/23 06:00 BP 86/54 06/18/23 06:00 Pulse Ox 100 06/18/23 06:00 O2 Del Method Room Air 06/17/23 16:40 06/17/23 06/18/23 06/18/23 22:59 06:59 14:59 Intake Total 95.448 / 1079.431 894.167 / 1972.598 0 / 0 Balance 95.448 / 1079.431 894.167 / 1972.598 0 / 0 Weight last 48 hrs Weight 66 lb 12.8 oz Weight 66 lb 4.8 oz Weight 66 lb 4.8 oz Weight 60 lb 9.6 oz Weight 75 lb Weight 70 lb Weight 75 lb Physical Exam 2 Narrative: General: Nonverbal, comfortable appearing. Small for age. Intellectual impairment. HEENT: Normocephalic, Atraumatic. External ears normal. Nasal passages patent without drainage. MMM. Heart: RRR. Resp: LCTA. No respiratory distress, no use of accessory muscles. Abd: Soft, non-tender. Non-distended. Extremities: No edema. Skin: No rash or lesions on exposed areas. Neuro: Unable to assess at this time. Data 06/18/23 04:50 06/18/23 04:50 Micro: Microbiology 06/16/23 13:55 Blood Culture - Preliminary Blood NEGATIVE TO DATE 06/16/23 13:30 Blood Culture - Preliminary Blood SPECIMEN COLLECTED A&P Assessment and plan (1) Acute prerenal failure: (2) Hypernatremia: (3) Sepsis: (4) Profound intellectual disability: (5) Pulmonary embolism: (6) Elevated troponin: Plan 32-year-old female with a past medical history of intellectual disability, admitted for acute renal failure, severe dehydration, concern for sepsis, and pulmonary emoblism. Continue close inpatient monitoring. BP remains soft, but stable. Continue with current IVF's. Na currently to 155. Renal function improved with BUN/Cr to 44/1.0 respectively. General surgery is consulted. Appreciate rec's. CT abdomen showed cholelithiasis , ultrasound showed cholelithiasis with gall bladder wall thickening, suspicious for acute cholecystitis . She has elevated liver enzymes . Her bili is WNL. Procalcitonin is elevated. Continue Vanc, Zosyn for sepsis concern. BCx pending and negative to date. Off pressors. LFT's improving. Viral respiratory panel is negative. Continue heparin for PE's. HR normal and stable. Oxygen sats remain normal. DEPARTMENT CLINICIAN burton completed. Recommended LV4 dysphagia diet and this was ordered. Continue strict I/O's, daily weights. Recheck am labs. Continue current medications for other chronic illnesses. Code Status: Full IVF: D5W @ 50mls/hr DVT PPx: Heparin GI PPx: None ABx: Vanc, Zosyn Diet: Dysphagia LV 4. Discharge plan: Home when appropriate. Attestations 2 Medical Necessity Statement*: Will need continued hospital management for severe sepsis, dehydration, requiring IV antibiotics, IV fluids, other supportive care and close cardiopulmonary monitoring in the ICU. Coding Level of Care Code Critical Care >/= 30 minutes Critical care time (in minutes): 39 The high probability of a clinically significant, sudden or life threatening deterioration, as referenced in this documentation, required my full and direct attention, intervention and personal management. The critical care time shown is in addition to time spent performing any reported separately billable procedures and includes the following: [x] Data and vital sign review and interpretation [x ] Patient assessment, examination and intervention [x] Medication orders and management [x] Patient/Family updates as able [x] Care Coordination and Documentation. Diagnoses Acute prerenal failure N17.9 Hypernatremia E87.0 Sepsis A41.9 Profound intellectual disability F73 Pulmonary embolism I26.99 Elevated troponin R79.89
[2023-06-18 11:00] LABS: Glucose Point of Care 111 mg/dL (70-110)
[2023-06-18 16:57] LABS: Glucose Point of Care 91 mg/dL (70-110)
--- NOTE | 2023-06-18 19:02 | P.PN_ITS ---
Subjective 2 Subjective: Patient seen and examined. Patient is nonverbal and has been improved for oral diet Vitals/I&O/Wt Last Vital Signs Temp 97.5 F L 06/18/23 16:00 Pulse 58 L 06/18/23 14:00 Resp 20 H 06/18/23 14:00 BP 91/57 06/18/23 14:00 Pulse Ox 97 06/18/23 14:00 O2 Del Method Room Air 06/18/23 14:00 06/18/23 06/18/23 06/18/23 06:59 14:59 22:59 Intake Total 894.167 / 1972.598 50 / 50 25 / 75 Balance 894.167 / 1972.598 50 / 50 / Weight last 48 hrs Weight 66 lb 12.8 oz Weight 66 lb 4.8 oz Weight 66 lb 4.8 oz Physical Exam 2 Narrative: General: No acute distress, patient is nonverbal Abdomen: Soft, nontender, nondistended Data 06/20/23 05:13 06/20/23 05:13 Micro: Microbiology 06/16/23 13:30 Blood Culture - Preliminary Blood NEGATIVE TO DATE A&P Assessment and plan (1) Chronic calculous cholecystitis: Plan Patient is nontender and asymptomatic Repeat gallbladder ultrasound She will need nutrition soon Medical management per hospitalist Attestations 2 Medical Necessity Statement*: Per primary Coding Level of Care Code 01903 Diagnoses Chronic calculous cholecystitis K80.10
--- NOTE | 2023-06-18 19:16 | US_ITS ---
WS: [id number] RIGHT UPPER QUADRANT ULTRASOUND HISTORY: gallstones COMPARISON: 06/16/2023 Liver: 11.1 cm in length. Normal size liver and echogenicity. No bile duct dilatation or mass. Portal Vein: Normal hepatopetal flow with monophasic waveform. Gallbladder: Gallbladder is contracted around several stones. Shadowing from the gallbladder fossa. T here is mild gallbladder wall thickening up to 5 mm but no pericholecystic fluid is identified. CBD: 0.3 cm Pancreas: Normal size and echogenicity. Right kidney: 5.0 cm in length. Kidney is measuring small. Kidney did appear slightly atrophied on th e recent CT with areas of cortical thinning. There are 2 small cysts associated within the cortex of the kidney. The largest with a maximum diameter of 2.6 cm. Aorta and IVC: Unremarkable abdominal aorta and IVC. No ascites. IMPRESSION: 1. Cholelithiasis without acute cholecystitis.. Gallbladder is contracted around gallstones. There i s mild gallbladder wall thickening which may be in part due to the contraction. No adjacent fluid is identified. 2. No bile duct dilatation.
[2023-06-18 20:57] LABS: Glucose Point of Care 89 mg/dL (70-110)
[2023-06-18] MEDS: dextrose 5% 1,000 ML 60 ML IV (21:19)
[2023-06-19] VITALS (221 sets, daily range): BP systolic 80–128; BP diastolic 44–86; PULSE 48–83; RESP 10–38; TEMP 35.8–37.2; O2SAT 91–100
[2023-06-19] MEDS: levothyroxine 50 mcg Tablet PO (05:00)
[2023-06-19] MEDS: piperacillin-tazobactam 3.375 GM in sodium chloride 0.9% (plus) 50 ML IV ×2 (05:00→17:17)
[2023-06-19 07:44] LABS: Glucose Point of Care 100 mg/dL (70-110)
--- NOTE | 2023-06-19 09:41 | P.PN_ITS ---
Subjective 2 Subjective: Patient seen and examined. Repeat gallbladder ultrasound shows no acute cholecystitis. Patient is nonverbal Vitals/I&O/Wt Last Vital Signs Temp 97.6 F 06/21/23 08:00 Pulse 60 06/21/23 08:00 Resp 17 06/21/23 04:00 BP 101/63 06/21/23 08:00 Pulse Ox 99 06/21/23 08:00 O2 Del Method Room Air 06/21/23 08:00 06/20/23 06/21/23 06/21/23 22:59 06:59 14:59 Intake Total 50 / 2504.294 1000 / 3504.294 50 / 50 Balance 50 / 2154.294 1000 / 3154.294 50 / 50 Weight last 48 hrs Weight 75 lb 12.8 oz Weight 75 lb 12.8 oz Weight 65 lb Weight 65 lb Physical Exam 2 Narrative: General: No acute distress, patient is nonverbal Abdomen: Soft, nontender, nondistended Data 06/20/23 05:13 06/20/23 05:13 A&P Assessment and plan (1) Chronic calculous cholecystitis: Plan Patient is nontender and asymptomatic She will need nutrition soon-hospitalist is discussing with family about possible PEG tube versus hospice care Medical management per hospitalist Attestations 2 Medical Necessity Statement*: Per primary Coding Level of Care Code 55756 Diagnoses Chronic calculous cholecystitis K80.10
--- NOTE | 2023-06-19 09:44 | PC.SOCIAL ---
IMM Update Pg. 2 of IMM updated and copy provided at bedside.
[2023-06-19 11:10] LABS: Basophils % 0.1 %; Eosinophils # 0.1 10^3/uL (0.0-0.8); Eosinophils % 1.3 %; Hematocrit 26.5 % (36-47); Lymphocytes # 1.7 10^3/uL (0.8-4.8); Lymphocytes % 19.2 %; Mean Corpuscular HGB Conc 30.6 g/dL (30-55); Mean Corpuscular Hemoglobin 26.7 pg (27-33); Mean Corpuscular Volume 87.5 fl (85-98); Mean Platelet Volume 11.5 fL (7.4-10.4); Monocytes # 0.4 10^3/uL (0.2-0.9); Neutrophils # 6.47 10^3/uL (1.8-7.7); Neutrophils % 73.9 %; Nucleated Red Blood Cells % 0.2 %; Platelet Count 179 10^3/cmm (157-399); Red Blood Count 3.03 10^6/uL (3.85-5.65); Red Cell Distribution Width 14.6 % (12.1-15.1); White Blood Count 8.75 10^3/uL (3.29-11.43)
[2023-06-19 11:14] LABS: Reticulocyte % 0.8 % (0.5-2.0)
[2023-06-19 11:29] LABS: Alanine Aminotransferase 64 U/L (0-33); Albumin Level 2.8 g/dL (3.5-5.2); Alkaline Phosphatase 104 U/L (35-105); Anion Gap 10.1 (5-19); Aspartate Amino Transferase 64 U/L (0-32); Blood Urea Nitrogen 18 mg/dL (6-20); C Reactive Protein 8.4 mg/L (0.0-4.9); Calcium 8.3 mg/dL (8.5-10.5); Carbon Dioxide 27 mmol/L (22-29); Chloride 105 mmol/L (98-107); Creatinine Clr Calc Pharmacy 53.7615; Globulin 2.8 g/dL (1.3-4.6); Glomerular Filtration Rate 95.8 mL/min (90-130); Glucose 97 mg/dL (65-115); Magnesium 2.2 mg/dL (1.7-2.3); Osmolality Calculated 290 mOsm/kg (285-295); Phosphorus 1.7 mg/dL (2.5-4.5); Potassium 3.1 mmol/L (3.5-5.1); Sodium 139 mmol/L (136-145); Total Bilirubin 0.5 mg/dL (0.15-1.2); Total Protein 5.6 g/dL (6.6-8.7)
[2023-06-19 11:36] LABS: Procalcitonin 0.28 ng/mL (0-0.5)
[2023-06-19 11:56] LABS: Ferritin 212 ng/mL (15-150); Iron 73 ug/dL (37-145); Percent Saturation 40.5 % (20-50); Total Iron Binding Capacity 180 mcg/dl; Unsaturated Iron Binding 107 ug/dL (112-347)
[2023-06-19 12:03] LABS: Folate Level 11.1 ng/mL (4.8-37.3)
[2023-06-19 12:12] LABS: Vitamin B12 1180 pg/mL (232-1245)
[2023-06-19 12:20] LABS: Glucose Point of Care 92 mg/dL (70-110)
[2023-06-19] MEDS: dextrose 5%-sod chloride 0.9% 1,000 ML 50 ML IV (12:53)
--- NOTE | 2023-06-19 15:11 | P.PN_ITS ---
Subjective 2 Subjective: Hospital course, labs appreciated. Today morning seen with mother at bedside. Patient laying comfortably in bed. As per mother she is almost at her baseline mentation. Has remained hemodynamically stable and afebrile. Remains on room air. Medications: Reviewed: Yes Vitals/I&O/Wt Last Vital Signs Temp 96.5 F L 06/19/23 12:20 Pulse 65 06/19/23 12:20 Resp 20 H 06/19/23 12:20 BP 120/81 06/19/23 12:20 Pulse Ox 100 06/19/23 12:20 O2 Del Method Room Air 06/19/23 12:20 06/19/23 06/19/23 06/19/23 06:59 14:59 22:59 Intake Total 50 / 908.333 965 / 965 Output Total 550 / 550 Balance 50 / 908.333 415 / 415 Weight last 48 hrs Weight 30.073 kg Weight 30.073 kg Weight 30.3 kg Physical Exam 2 Narrative: General: Nonverbal, comfortable appearing. Small for age. Intellectual impairment. HEENT: Normocephalic, Atraumatic. External ears normal. Nasal passages patent without drainage. MMM. Heart: RRR. Resp: Bilateral normal vesicular breath sounds all over lung arredondo, no respiratory distress, no use of accessory muscles. Abd: Soft, non-tender. Non-distended. Extremities: No edema. Skin: No rash or lesions on exposed areas. Neuro: Unable to assess at this time. Data 06/19/23 10:42 06/19/23 10:42 Micro: Microbiology 06/16/23 13:30 Blood Culture - Preliminary Blood NEGATIVE TO DATE A&P Assessment and plan (1) Hypernatremia: Most likely in setting of dehydration from poor oral intake. Admitted with sodium level up to 169. Currently on D5W at 60 cc/h. Down to 139 today morning. Switch to D5 NS at 50 cc/h. Repeat BMP in evening. (2) Pulmonary embolism: Currently on heparin drip. No RV strain on echocardiogram. Currently on room air. No tachycardia. As per the nursing staff patient is taking orally. Started on diet as per speech therapy. Stop heparin drip and switch to Eliquis 10 mg twice daily. Will continue Eliquis 10 mg twice daily for overall 7 days of full anticoagulation and then switch to Eliquis 5 mg twice daily. (3) Sepsis: Resolved. Present on admission. Follow-up blood culture. No urine culture sent on admission. Patient has been on antibiotics for now so we will hold off on urine culture. Check MRSA swab. For now continue with IV vancomycin and Zosyn. Will overall finish 5-day course. Can stop vancomycin if MRSA swab negative. (4) Acute prerenal failure: In setting of dehydration on admission. Resolved now. (5) Profound intellectual disability: (6) Elevated troponin: (7) Goals of care, counseling/discussion: (8) Protein-calorie malnutrition, severe: Plan Goals of care discussion: Discussed in detail with patient's mother at bedside. We discussed unfortunately patient had acute renal failure along with hypernatremia on admission in setting of dehydration from poor oral intake. We discussed her sodium levels as well as as high as 169 which usually develops very gradually because of chronic poor oral intake. We discussed unfortunately poor oral intake is because of intellectual disability which will not improve going forward. We discussed the high likelihood of her dehydration and hypernatremia requiring even after resolution with current treatment and high likelihood of readmission because of the same. Discussed going forward the option would be either PEG tube placement for nutrition, hydration though patient would be at a higher risk of pulling of PEG tube given poor intellectual status versus hospice care. Mother verbalized understanding. She will try to safely increase patient's oral intake of liquids as possible while she is in the hospital. She would also discuss further with family members before making any further decisions. Analgesia: Tylenol as needed, morphine 2 mg every 4 hours as needed Glycemic control: Not needed Nutrition: Dysphagia level 4 diet. Advance as per speech evaluation. CODE STATUS: Full code PUD prophylaxis: Protonix DVT prophylaxis: Full dose heparin switched to Eliquis Discharge planning: Home once patient is medically clear. Family declining home health for now. Continue with care at ICU care for today. If remains stable will transition to [facility] in AM. This documentation was created by [employer] drum drier software. Every effort was made to ensure accuracy of drum drier. Any obvious errors or omissions should be clarified with the author of the document. Attestations 2 Medical Necessity Statement*: Requires further hospitalization for management of hypernatremia in setting of poor oral intake in a patient with baseline intellectual disability, pulmonary embolism. Diagnoses Hypernatremia E87.0 Pulmonary embolism I26.99 Sepsis A41.9 Acute prerenal failure N17.9 Profound intellectual disability F73 Elevated troponin R79.89 Goals of care, counseling/discussion Z71.89 Protein-calorie malnutrition, severe E43
[2023-06-19] MEDS: enoxaparin 30 mg/0.3 mL Syringe SUBCUT (17:23)
--- NOTE | 2023-06-19 17:59 | PC.NURSE ---
Calorie Count for 06/19/2023 day shift: 75 calories= 75% of pudding cup
--- NOTE | 2023-06-19 18:09 | PC.NURSE ---
Shift Summary day shift 06/19/2023: Uneventful shift. Sodium is within normal limits, changed fluid from D5w to D5NS. Patient ate very little today, refuses to eat when nursing staff attempts to feed her. Ate very little from her mother, about 3/4 of a pudding cup over the course of an hour. Physician had discussion with mother regarding peg tube vs hospice care. Total calorie intake: 75 calories
[2023-06-19 18:41] LABS: Glucose Point of Care 90 mg/dL (70-110)
[2023-06-19] MEDS: vancomycin 500 MG in sodium chloride 0.9% (plus) 100 ML 200 MG IV (18:44)
[2023-06-19 20:20] LABS: Glucose Point of Care 92 mg/dL (70-110)
[2023-06-19 20:42] LABS: Blood Urea Nitrogen 13 mg/dL (6-20); Calcium 8.5 mg/dL (8.5-10.5); Carbon Dioxide 29 mmol/L (22-29); Chloride 109 mmol/L (98-107); Creatinine Clr Calc Pharmacy 53.7615; Glomerular Filtration Rate 95.8 mL/min (90-130); Glucose 93 mg/dL (65-115); Osmolality Calculated 298 mOsm/kg (285-295); Sodium 144 mmol/L (136-145)
[2023-06-19] MEDS: lidocaine 1% 5 ML in potassium chloride premix 100 ML 26.25 ML IV (21:30)
[2023-06-19 21:59] LABS: Partial Thromboplastin Time 38.6 SECONDS (23.9-36.7)
[2023-06-20] VITALS (41 sets, daily range): BP systolic 85–118; BP diastolic 62–89; PULSE 54–84; RESP 7–23; TEMP 36.4–37.3; O2SAT 77–100; BMI 19.8
[2023-06-20] MEDS: enoxaparin 30 mg/0.3 mL Syringe SUBCUT ×2 (05:07→17:56)
[2023-06-20] MEDS: piperacillin-tazobactam 3.375 GM in sodium chloride 0.9% (plus) 50 ML IV ×2 (05:07→17:56)
[2023-06-20 05:29] LABS: Basophils % 0.3 %; Eosinophils # 0.2 10^3/uL (0.0-0.8); Eosinophils % 2.3 %; Hematocrit 27.5 % (36-47); Lymphocytes # 1.9 10^3/uL (0.8-4.8); Lymphocytes % 23.3 %; Mean Corpuscular HGB Conc 30.5 g/dL (30-55); Mean Corpuscular Hemoglobin 26.8 pg (27-33); Mean Corpuscular Volume 87.9 fl (85-98); Mean Platelet Volume 11.2 fL (7.4-10.4); Monocytes # 0.4 10^3/uL (0.2-0.9); Monocytes % 4.8 %; Neutrophils # 5.42 10^3/uL (1.8-7.7); Neutrophils % 68.2 %; Nucleated Red Blood Cells % 0.3 %; Platelet Count 181 10^3/cmm (157-399); Red Blood Count 3.13 10^6/uL (3.85-5.65); Red Cell Distribution Width 14.4 % (12.1-15.1); White Blood Count 7.94 10^3/uL (3.29-11.43)
--- NOTE | 2023-06-20 05:41 | PC.NURSE ---
This nurse tried to feed and give water to the patient multiple times through the night but the patient refused by turning their head away. Patient has refused their morning levothyroxine by also turning their head and groaning. They had no oral intake through the night due to patient refusing everything that was offered.
[2023-06-20 05:48] LABS: Alanine Aminotransferase 72 U/L (0-33); Albumin Level 2.9 g/dL (3.5-5.2); Alkaline Phosphatase 110 U/L (35-105); Anion Gap 10.2 (5-19); Aspartate Amino Transferase 81 U/L (0-32); Blood Urea Nitrogen 11 mg/dL (6-20); Calcium 8.5 mg/dL (8.5-10.5); Carbon Dioxide 26 mmol/L (22-29); Chloride 112 mmol/L (98-107); Creatinine Clr Calc Pharmacy 53.7615; Globulin 2.8 g/dL (1.3-4.6); Glomerular Filtration Rate 95.8 mL/min (90-130); Glucose 89 mg/dL (65-115); Osmolality Calculated 297 mOsm/kg (285-295); Potassium 4.2 mmol/L (3.5-5.1); Sodium 144 mmol/L (136-145); Total Bilirubin 0.3 mg/dL (0.15-1.2); Total Protein 5.7 g/dL (6.6-8.7)
[2023-06-20 06:10] LABS: Folate Level 11.2 ng/mL (4.8-37.3)
[2023-06-20] MEDS: dextrose 5%-sod chloride 0.9% 1,000 ML 50 ML IV (07:49)
[2023-06-20 07:56] LABS: Glucose Point of Care 95 mg/dL (70-110)
[2023-06-20] MEDS: pantoprazole 40 mg SDV IVP (09:11)
[2023-06-20 11:21] LABS: Glucose Point of Care 94 mg/dL (70-110)
--- NOTE | 2023-06-20 13:24 | PM.PN ---
Subjective Subjective: No acute events overnight. Patient has remained hemodynamically stable and afebrile. Documented urine output of around 1000 cc in last 24 hours. Mother at bedside on examination today. Patient continues to have little oral intake. Remains on room air. Medications: Reviewed: Yes Vitals/I&O/Wt Last Vital Signs Temp 98.6 F 06/20/23 10:00 Pulse 66 06/20/23 10:00 Resp 16 06/20/23 10:00 BP 85/62 06/20/23 10:00 Pulse Ox 97 06/20/23 10:00 O2 Del Method Room Air 06/20/23 10:00 06/19/23 06/20/23 06/20/23 22:59 06:59 14:59 Intake Total 150 / 1115 2454.294 / 2454.294 Output Total 495 / 1045 350 / 350 Balance 150 / 565 -495 / 70 2104.294 / 2104.294 Weight last 48 hrs Weight 29.484 kg Weight 29.484 kg Weight 30.073 kg Weight 30.073 kg Physical Exam Narrative: General: Nonverbal, comfortable appearing. Small for age. Intellectual impairment. HEENT: Normocephalic, Atraumatic. External ears normal. Nasal passages patent without drainage. MMM. Heart: RRR. Resp: Bilateral normal vesicular breath sounds all over lung arredondo, no respiratory distress, no use of accessory muscles. Abd: Soft, non-tender. Non-distended. Extremities: No edema. Skin: No rash or lesions on exposed areas. Neuro: Unable to assess at this time. Data 06/20/23 05:13 06/20/23 05:13 A&P Assessment and plan (1) Hypernatremia: Most likely in setting of dehydration from poor oral intake. Admitted with sodium level up to 169. Resolved. Continue with D5 NS at 50 cc/h. Sodium at 144 today. Repeat BMP in AM. (2) Pulmonary embolism: Did not tolerate oral Eliquis. Started on 1 mg/kg body weight every 12 hours day of Lovenox. For now we will continue. No RV strain on echocardiogram. Currently on room air. No tachycardia. (3) Sepsis: Resolved. Present on admission. Follow-up blood culture. No urine culture sent on admission. Patient has been on antibiotics for now so we will hold off on urine culture. MRSA swab pending. For now continue with IV vancomycin and Zosyn. Will overall finish 5-day course. Can stop vancomycin if MRSA swab negative. (4) Acute prerenal failure: In setting of dehydration on admission. Resolved now. (5) Profound intellectual disability: (6) Elevated troponin: (7) Goals of care, counseling/discussion: (8) Protein-calorie malnutrition, severe: Plan Goals of care discussion: Discussed in detail with patient's mother at bedside. We discussed unfortunately patient had acute renal failure along with hypernatremia on admission in setting of dehydration from poor oral intake. We discussed her sodium levels as well as as high as 169 which usually develops very gradually because of chronic poor oral intake. We discussed unfortunately poor oral intake is because of intellectual disability which will not improve going forward. We discussed the high likelihood of her dehydration and hypernatremia requiring even after resolution with current treatment and high likelihood of readmission because of the same. Discussed going forward the option would be either PEG tube placement for nutrition, hydration though patient would be at a higher risk of pulling of PEG tube given poor intellectual status versus hospice care. Mother verbalized understanding. She will try to safely increase patient's oral intake of liquids as possible while she is in the hospital. She would also discuss further with family members before making any further decisions. 06/19: Again discussed in detail with patient's mother at bedside. We discussed that again patient does not have good oral intake and even refused her medication for pulmonary embolism which is a blood thinner yesterday evening. We discussed going forward the option 3 for PEG tube placement for nutrition and medications and hydration versus hospice. We discussed hospice would mean that patient can have oral intake with medication and diet as per her comfort and when she is able to otherwise she would not be. As that would be against her comfort and if and when she gets sick again including dehydration or infection plan will be to keep her comfortable at home while nature takes its course which could even mean her . We discussed PEG tube placement and hydration can be maintained and chances of recurrent hypernatremia are low but there is a risk of PEG tube malfunction or pulling out blood clot mentation. Mother verbalized understanding and after discussion with the family is okay with hospice care. Case management alerted. Analgesia: Tylenol as needed, morphine 2 mg every 4 hours as needed Glycemic control: Not needed Nutrition: Dysphagia level 4 diet. Advance as per speech evaluation. Aspiration precautions CODE STATUS: Full code PUD prophylaxis: Protonix DVT prophylaxis: Full dose Lovenox 1 mg/kg body weight every 12 hourly. Discharge planning: Home once patient is medically clear. Family declining home health for now. [facility]. This documentation was created by [employer] putty and patch worker software. Every effort was made to ensure accuracy of putty and patch worker. Any obvious errors or omissions should be clarified with the author of the document. 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
--- NOTE | 2023-06-20 14:16 | PC.NURSE ---
Called report to Daniela RUSS on [facility] at 1410.
[2023-06-20 17:09] LABS: Glucose Point of Care 133 mg/dL (70-110)
[2023-06-20 20:33] LABS: Glucose Point of Care 107 mg/dL (70-110)
[2023-06-20] MEDS: morphine 4 mg/mL SDV 1 mL 2 MG IVP (20:48)
[2023-06-21] MEDS: dextrose 5%-sod chloride 0.9% 1,000 ML 50 ML IV (03:58)
[2023-06-21 04:00] VITALS: BP 113/74; PULSE 61; RESP 17; TEMP 36.6; O2SAT 100
[2023-06-21] MEDS: piperacillin-tazobactam 3.375 GM in sodium chloride 0.9% (plus) 50 ML IV (05:04)
[2023-06-21] MEDS: enoxaparin 30 mg/0.3 mL Syringe SUBCUT (05:07)
[2023-06-21 05:24] VITALS: PULSE 57
[2023-06-21 06:21] LABS: Glucose Point of Care 106 mg/dL (70-110)
[2023-06-21 08:00] VITALS: BP 101/63; PULSE 60; TEMP 36.4; O2SAT 99
[2023-06-21] MEDS: pantoprazole 40 mg SDV IVP (08:23)
--- NOTE | 2023-06-21 09:42 | P.PN_ITS ---
Subjective 2 Subjective: Patient seen and examined. Family has decided to pursue hospice care. Patient is nonverbal Vitals/I&O/Wt Last Vital Signs Temp 97.6 F 06/21/23 08:00 Pulse 60 06/21/23 08:00 Resp 17 06/21/23 04:00 BP 101/63 06/21/23 08:00 Pulse Ox 99 06/21/23 08:00 O2 Del Method Room Air 06/21/23 08:00 06/20/23 06/21/23 06/21/23 22:59 06:59 14:59 Intake Total 50 / 2504.294 1000 / 3504.294 50 / 50 Balance 50 / 2154.294 1000 / 3154.294 50 / 50 Weight last 48 hrs Weight 75 lb 12.8 oz Weight 75 lb 12.8 oz Weight 65 lb Weight 65 lb Physical Exam 2 Narrative: General: No acute distress, patient is nonverbal Abdomen: Soft, nontender, nondistended Data 06/20/23 05:13 06/20/23 05:13 A&P Assessment and plan (1) Chronic calculous cholecystitis: Plan Family has decided to pursue hospice care No acute surgical intervention. General surgery will sign off. Please reconsult if the need arises Medical management per hospitalist Attestations 2 Medical Necessity Statement*: Per primary Coding Level of Care Code 57704 Diagnoses Chronic calculous cholecystitis K80.10
--- NOTE | 2023-06-21 09:58 | P.DS_ITS ---
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 History from patient is limited and was gotten from chart review. Per reports, she has not been able to eat or drink in the past 2-3 days and she has not been responding as she usually does. In the ER, she was noted to be very lethargic, dehydrated, tachycardic to the 150's and hypotensive. She was given IVFs and started on vasopressors. She also received broad spectrum antibiotics . She had improvement in her symptoms after IVF. Vasopressors was weaned off. CT chest was positive for right lower lobe segmental and sub segmental pulmonary embolism. CT abdomen showed cholelithiasis , ultrasound showed cholelithiasis with gall bladder wall thickening. Hospital Course Hospital Course Patient was admitted to the hospital for further evaluation and management. On admission she was found to be in acute kidney injury along with hypernatremia secondary to severe dehydration because of poor oral intake. There was also concerns for sepsis. She was started on broad-spectrum IV antibiotics. She was also found to have a right lower lobe pulmonary embolism for which she was started on anticoagulation. With IV hydration her renal functions and sodium levels improved gradually. Patient has been more awake and alert after improvement in her electrolyte abnormalities. Patient continued to have poor oral intake because of her baseline intellectual disability because of which she is at a higher risk of recurrent episodes of acute kidney injury, protein energy malnutrition and hypernatremia. Long-term plans were discussed in detail with patient's DPOA/mother at bedside multiple times. We discussed the options of PEG tube placement versus possible hospice. Discussions were as below. We discussed that again patient does not have good oral intake and even refused her medication for pulmonary embolism which is a blood thinner yesterday evening. We discussed going forward the option would be for PEG tube placement for nutrition, medications and hydration versus hospice. We discussed hospice would mean that patient can have oral intake with medication and diet as per her comfort and when she is able to otherwise she would not be. As that would be against her comfort and if and when she gets sick again including dehydration or infection plan will be to keep her comfortable at home while nature takes its course which could even mean her . We discussed PEG tube placement and hydration can be maintained and chances of recurrent hypernatremia are low but there is a risk of PEG tube malfunction or pulling out of the PEG tube due to poor mentation. Mother verbalized understanding and after discussion with the family is okay with hospice care. She has been discharged home with hospice for further care. Physical Exam Narrative: General: Nonverbal, comfortable appearing. Small for age. Intellectual impairment. HEENT: Normocephalic, Atraumatic. External ears normal. Nasal passages patent without drainage. MMM. Heart: RRR. Resp: Bilateral normal vesicular breath sounds all over lung arredondo, no respiratory distress, no use of accessory muscles. Abd: Soft, non-tender. Non-distended. Extremities: No edema. Skin: No rash or lesions on exposed areas. Neuro: Unable to assess at this time. Discharge Data Studies Completed and Pending Completed Studies During Hospitalization Category Date Time Status CTA chest CT abdomen pelvis [CT angio chest w abd pel w Cat Scan 06/16/23 13:50 Completed con] Stat CXRP [XR chest 1V portable 50056] Stat Exams 06/16/23 13:29 Completed CV. echo complete* 26050 Urgent Ultrasound 06/16/23 17:34 Completed US gall bladder 99855 Routine Ultrasound 06/18/23 19:16 Completed US gall bladder 92521 Stat Ultrasound 06/16/23 14:50 Completed Pending at discharge Category Date Time Status Bacterial Antigen Stat Lab 06/19/23 12:30 Ordered Blood Culture Stat Lab 06/16/23 13:30 Results MRSA [Methicillin Resistant S.aureu] Routine Lab 06/19/23 20:10 Received Urinalysis and Microscopic Routine Lab 06/16/23 19:14 Ordered Urinalysis and Microscopic Stat Lab 06/16/23 13:12 Uncollected Radiology Impressions Chest X-Ray 06/16/23 13:29 IMPRESSION: Right IJ central venous catheter with the tip overlying the right atrium. No visible pneumothorax. Chest/Abdomen/Pelvis CT 06/16/23 13:50 IMPRESSION: Right lower lobe segmental and subsegmental pulmonary embolism. The aforementioned findings initiated a critical results communication pathway. An addendum will be issued at the time of clinician notification. IMPRESSION: 1. Cholelithiasis, with mild wall thickening follow-up evaluation right upper quadrant sonogram may be obtained. 2. There is excessive colonic stool content. Consistent with constipation. COMMENTS: Consistent with the [employer]'s Incidental Findings Committee white paper (J Am Abran Radiol 2018): Any incidental renal lesion less than 1 cm or classified as too small to characterize, or any incidental cystic renal lesion characterized as simple-appearing, is likely benign. No follow-up imaging is recommended for these lesions per consensus recommendations based on imaging criteria. ADDENDUM: 06/16/23 9720 THIS REPORT CONTAINS FINDINGS THAT MAY BE CRITICAL TO PATIENT CARE. The findings were verbally communicated via telephone conference with LISSA Helton at 2:47 PM CDT on 06/16/2023. The findings were acknowledged and understood. Laboratory Results WBC 7.94 10^3/uL (3.29-11.43) 06/20/23 05:13 RBC 3.13 10^6/uL (3.85-5.65) L 06/20/23 05:13 Hgb 8.40 g/dL (11.27-16.99) L 06/20/23 05:13 Hct 27.5 % (36-47) L 06/20/23 05:13 MCV 87.9 fl (85-98) 06/20/23 05:13 MCH 26.8 pg (27-33) L 06/20/23 05:13 MCHC 30.5 g/dL (30-55) 06/20/23 05:13 RDW 14.4 % (12.1-15.1) 06/20/23 05:13 Plt Count 181 10^3/cmm (157-399) 06/20/23 05:13 MPV 11.2 fL (7.4-10.4) H 06/20/23 05:13 Neut % (Auto) 68.2 % 06/20/23 05:13 Lymph % (Auto) 23.3 % 06/20/23 05:13 [place] % (Auto) 4.8 % 06/20/23 05:13 Eos % (Auto) 2.3 % 06/20/23 05:13 Baso % (Auto) 0.3 % 06/20/23 05:13 Reticulocyte % (Auto) 0.8 % (0.5-2.0) 06/19/23 10:42 Neut # (Auto) 5.42 10^3/uL (1.8-7.7) 06/20/23 05:13 Lymph # (Auto) 1.9 10^3/uL (0.8-4.8) 06/20/23 05:13 [place] # (Auto) 0.4 10^3/uL (0.2-0.9) 06/20/23 05:13 Eos # (Auto) 0.2 10^3/uL (0.0-0.8) 06/20/23 05:13 Baso # (Auto) 0.0 10^3/uL (0.0-0.1) 06/20/23 05:13 Nucleated RBC % (auto) 0.3 % 06/20/23 05:13 Nucleated RBCs # 0.0 /100WBC 06/20/23 05:13 PT 17.20 SECONDS (12.1-14.9) H 06/16/23 13:30 INR 1.35 (0.8-1.2) H 06/16/23 13:30 APTT 38.6 SECONDS (23.9-36.7) H 06/19/23 21:30 Sodium 144 mmol/L (136-145) 06/20/23 05:13 Potassium 4.2 mmol/L (3.5-5.1) 06/20/23 05:13 Chloride 112 mmol/L (98-107) H 06/20/23 05:13 Carbon Dioxide 26 mmol/L (22-29) 06/20/23 05:13 Anion Gap 10.2 (5-19) 06/20/23 05:13 BUN 11 mg/dL (6-20) 06/20/23 05:13 Creatinine 0.7 mg/dL (0.5-0.9) 06/20/23 05:13 GFR Calculation 95.8 mL/min (90-130) 06/20/23 05:13 Glucose 89 mg/dL (65-115) 06/20/23 05:13 POC Glucose 106 mg/dL (70-110) 06/21/23 06:18 Estimat Average Glucose 111 06/17/23 03:33 Hemoglobin A1c 5.5 % (4.0-6.0) 06/17/23 03:33 Calculated Osmolality 297 mOsm/kg (285-295) H 06/20/23 05:13 Lactic Acid 1.2 mmol/L (0.5-2.2) 06/16/23 15:01 Calcium 8.5 mg/dL (8.5-10.5) 06/20/23 05:13 Phosphorus 1.7 mg/dL (2.5-4.5) L 06/19/23 10:42 Magnesium 2.2 mg/dL (1.7-2.3) 06/19/23 10:42 Iron 73 ug/dL (37-145) 06/19/23 10:42 TIBC 180 mcg/dl 06/19/23 10:42 % Saturation 40.5 % (20-50) 06/19/23 10:42 Unsat Iron Binding 107 ug/dL (112-347) L 06/19/23 10:42 Ferritin 212 ng/mL (15-150) H 06/19/23 10:42 Total Bilirubin 0.3 mg/dL (0.15-1.2) 06/20/23 05:13 AST 81 U/L (0-32) H 06/20/23 05:13 ALT 72 U/L (0-33) H 06/20/23 05:13 Alkaline Phosphatase 110 U/L (35-105) H 06/20/23 05:13 Ammonia 26 umol/L (11-51) 06/16/23 14:42 Troponin T Baseline 27 ng/L (0-10) H 06/16/23 11:30 Troponin T 120 Minute 37.68 ng/L (0-10) H 06/16/23 16:22 Delta Troponin T 10.68 ABS# (0-10) H* 06/16/23 16:22 Troponin T Hi Sens 6Hr 41.77 ng/L (0-10) H 06/16/23 18:59 Troponin T Hi Sens 6Hr Delta 14.77 ng/L (0-12) H* 06/16/23 18:59 C-Reactive Protein 8.4 mg/L (0.0-4.9) H 06/19/23 10:42 Total Protein 5.7 g/dL (6.6-8.7) L 06/20/23 05:13 Albumin 2.9 g/dL (3.5-5.2) L 06/20/23 05:13 Globulin 2.8 g/dL (1.3-4.6) 06/20/23 05:13 Lipase 197 U/L (13-60) H 06/16/23 11:30 Vitamin B12 1180 pg/mL (232-1245) 06/19/23 10:42 Folate 11.2 ng/mL (4.8-37.3) 06/20/23 05:13 Procalcitonin 0.28 ng/mL (0-0.5) 06/19/23 10:42 TSH 0.30 uIU/mL (0.27-4.20) 06/16/23 14:42 Serum Ketones Negative (Negative) 06/16/23 15:01 Adenovirus (PCR) Not detected (NOT DETECT) 06/16/23 Unknown C. pneumoniae DNA (PCR) Not detected (NOT DETECT) 06/16/23 Unknown Coronavirus 229E (PCR) Not detected (NOT DETECT) 06/16/23 Unknown Human Metapneumovir PCR Not detected (NOT DETECT) 06/16/23 Unknown Influenza A (H1) PCR Not detected (NOT DETECT) 06/16/23 Unknown Influ A (H1/09) PCR Not detected (NOT DETECT) 06/16/23 Unknown Influenza A (H3) PCR Not detected (NOT DETECT) 06/16/23 Unknown Influenza Type A Ag negative (Negative) 06/16/23 13:52 Influenza Type A (PCR) Not detected (NOT DETECT) 06/16/23 Unknown Influenza Type B Ag negative (Negative) 06/16/23 13:52 Influenza Type B (PCR) Not detected (NOT DETECT) 06/16/23 Unknown M. pneumoniae (PCR) Not detected (NOT DETECT) 06/16/23 Unknown Parainfluenza 1 (PCR) Not detected (NOT DETECT) 06/16/23 Unknown Parainfluenza 2 (PCR) Not detected (NOT DETECT) 06/16/23 Unknown Parainfluenza 3 (PCR) Not detected (NOT DETECT) 06/16/23 Unknown Parainfluenza 4 (PCR) Not detected (NOT DETECT) 06/16/23 Unknown RSV Type A (PCR) Not detected (NOT DETECT) 06/16/23 Unknown RSV Type B (PCR) Not detected (NOT DETECT) 06/16/23 Unknown Entero/Rhino (PCR) Not detected (NOT DETECT) 06/16/23 Unknown SARS-CoV-2 (PCR) Not detected (NOT DETECT) 06/16/23 Unknown Vitals Last Vital Signs Temp 97.6 F 06/21/23 08:00 Pulse 60 06/21/23 08:00 Resp 17 06/21/23 04:00 BP 101/63 06/21/23 08:00 Pulse Ox 99 06/21/23 08:00 O2 Del Method Room Air 06/21/23 08:00 Discharge Plan Discharge Patient Disposition: Hospice - Home Condition: Stable Prescriptions: New Eliquis DVT-PE Treat 30D Start 5 mg (74 tabs) tablets,dose pack See Rx Instructions .ROUTE .COMPLEX Qty: 74 0RF Rx Instructions: orally per package directions Continued meloxicam 7.5 mg tablet 7.5 mg PO DAILY levothyroxine [Euthyrox] 50 mcg tablet 50 mcg PO QAM risperidone [Risperdal] 1 mg tablet 1 mg PO BID Qty: 60 5RF trazodone 150 mg tablet 150 - 300 mg PO BEDTIME amoxicillin-pot clavulanate 875-125 mg tablet 1 tab PO BID Rx Instructions: for 7 days (rx filled 06/11/23) loratadine 10 mg Tablet 10 mg PO QAM Discharge Orders: Discharge Order (Routine); Ordered 06/21/23 Ordered By: Gurdeep Darling Referrals: [facility] [Outside] Elizabeth Mills DO [Primary Care Provider] - Discharge Diet: Advance as tolerated Discharge Activity: Bedrest Patient Instructions: Apixaban (By mouth), Hospice Care, Pulmonary Embolism (GEN), Opioid Safety Discharge Attestations Time Spent in Discharge Care*: greater than 30 min Specific Discharge Activities: educating and/or supporting family/caregiver, discussing with pcp/other providers, discussing with case filler/social workers/dc planners, documenting/other paperwork and evaluating patient/reviewing data Status at Discharge: Cognitive status at discharge: severely impaired cognition , Behavioral status at discharge: cooperative , Functional status at discharge: bed bound , Overall status at discharge: patient is back to [facility] Clinical Quality Measures [ No reported AMI, CVA or VTE this stay] Coding Level of Care Code Acute Code for Chg Fwd Diagnoses Chronic calculous cholecystitis K80.10
--- NOTE | 2023-06-21 11:02 | PC.NURSE ---
Sutures removed from right IJ. Line discontinued at this time with cath intact. Pressure held for five minutes. 2x2 gauze and biooclusive dressing applied to area. Pt tolerated well.
[2023-06-21 11:11] VITALS: BP 101/63; PULSE 60; TEMP 36.4; O2SAT 99
--- NOTE | 2023-06-21 11:12 | PC.NURSE ---
Discharge instructions given to pt's mother. She verbalizes understanding. Case mgt. advised that pt is leaving so they can notify [facility]. Pt to private vehicle via her own wheelchair with all belongings.
--- NOTE | 2023-06-21 11:14 | PC.SOCIAL ---
IMM Update pg 2 of IMM updated and reviewed w/ patient. Copy provided and copy dated, initialed and placed in chart.
[2023-06-22 12:24] LABS: Methicillin-Resist S.aureu PCR NOT DETECTED (NOT DETECTED)
== END 2023-06-21 11:30 | disposition hospice, home (50) | DRG 175 ==
LOC: ER 14:20 → ICU 15:50 → MEDSURG 06-20 14:47
PROVIDERS: Emergency Medicine; Family Medicine; Admitting Provider Student in an Organized Health Care Education/Training Program; Emergency Provider Family Medicine; PCP Family Medicine; Visit Provider Student in an Organized Health Care Education/Training Program
DX: I26.99 Other pulmonary embolism without acute cor pulmonale (principal); E43 Unspecified severe protein-calorie malnutrition; N17.9 Acute kidney failure, unspecified; E87.0 Hyperosmolality and hypernatremia; F72 Severe intellectual disabilities; K80.10 Calculus of gallbladder with chronic cholecystitis without obstruction; Q91.3 Trisomy 18, unspecified; E86.0 Dehydration; E03.9 Hypothyroidism, unspecified; R74.01 Elevation of levels of liver transaminase levels; R79.89 Other specified abnormal findings of blood chemistry; Z51.5 Encounter for palliative care; Z71.89 Other specified counseling
CPT/HCPCS: 12345; 36415; 36416; 36556; 36592; 71045; 71275; 74177; 76705; 80048; 80053; 82009; 82140; 82607; 82728; 82746; 82962; 83036; 83540; 83550; 83605; 83690; 83735; 84100; 84145; 84295; 84443; 84484; 85018; 85025; 85045; 85049; 85610; 85730; 86140; 87040; 87486; 87581; 87633; 87635; 87641; 87804; 92526; 92610; 93005; 93306; 96365; 96367; 96372; 96376; 99291; 99292; C9113; J1644; J1650; J2020; J2185; J2270; J2543; J3370; J3480; J7030; J7042; J7070; Q9967